=== PATIENT | female | born 1970 | race Two or more races ===

== ENCOUNTER 2016-12-06 22:16 | Emergency (ER) | payer SELFPAY ==
[~2016-12-06 22:16] MED LIST: AMOX1TAB61 PO
[2016-12-06 23:21] LABS: BILIRUBIN,URINE NEGATIVE (NEG); GLUCOSE,URINE NEGATIVE (NEG); NITRITE,URINE NEGATIVE (NEG); PROTEIN,URINE NEGATIVE (NEG-TRACE)
[2016-12-06 23:28] LABS: BACTERIA,URINE FEW /HPF (0-FEW); RBC,URINE OCC /HPF (0-2); SQUAMOUS EPITHELIAL CELL,UR FEW /LPF
[2016-12-06] MEDS ORDERED: IV NORMAL SALINE 1000ML BAG 1,000 ML IV SCH (23:30)
[2016-12-06] MEDS ORDERED: fentaNYL PF VIAL 100 MCG/2 ML VIAL IV PRN (23:30)
[2016-12-06] MEDS ORDERED: ONDANSETRON PF 4 MG/2 ML VIAL. IV ONE (23:45)
[2016-12-06] MEDS ORDERED: CONTRAST GIVEN MC PRN (23:45)
[2016-12-06 23:58] LABS: BASO # 0.1 x10^3/uL (0.0-0.2); BASO % 1 % (0-3); EOS % 3 % (0-3); HEMATOCRIT 38.7 % (36.0-47.0); HEMOGLOBIN 13.2 g/dL (12.0-15.5); LYMPH # 3.5 x10^3/uL (1.0-4.8); LYMPH % 32 % (24-48); MEAN CORPUSCULAR HEMOGLOBIN 33 pg (25-35); MEAN CORPUSCULAR HGB CONC 34 g/dL (31-37); MEAN CORPUSCULAR VOLUME 96 fL (79-100); MONO % 8 % (0-9); NEUT % 57 % (31-73); PLATELET COUNT 145 x10^3/uL (140-400); RED BLOOD COUNT 4.04 x10^6/uL (3.50-5.40); RED CELL DISTRIBUTION WIDTH 13.5 % (11.5-14.5)
[2016-12-07 00:06] LABS: CALCIUM 8.4 mg/dL (8.5-10.1); CREATININE 0.7 mg/dL (0.6-1.0); GFR 89.7; POTASSIUM 3.8 mmol/L (3.5-5.1)
[2016-12-07 00:12] LABS: ALBUMIN/GLOBULIN RATIO 0.7 (1.0-1.7); TOTAL BILIRUBIN 0.2 mg/dL (0.2-1.0); TOTAL PROTEIN 7.6 g/dL (6.4-8.2)
[2016-12-07] MEDS ORDERED: IOHEXOL 300 MG/ML 75 ML VIAL IV ONE (00:30)
--- NOTE | 2016-12-07 01:12 | RAD ---
INDICATION: abdomen pain x 4 days COMPARISON: February 07, 2016 TECHNIQUE: Axial CT images were obtained through the abdomen and pelvis with intravenous contrast. One or more of the following individualized dose reduction techniques were utilized for this examination: 1. Automated exposure control; 2. Adjustment of the mA and/or kV according to patient size; 3. Use of iterative reconstruction technique. FINDINGS: Linear nodular density right lung base again seen. Given location could be from atelectasis or scarring. Abdominal aorta is not aneurysmal. Liver low attenuation. No peripancreatic edema. Spleen unremarkable. No hydronephrosis. High density material within the renal pelvis. Could all be from excreted contrast but could obscure tiny stones. Some lobulations of right kidney. Bladder is partially distended. No dilated loops of bowel to suggest obstruction. Appendix does not appear grossly inflamed. Small fat-containing umbilical hernia. Degenerative changes of the spine. There is some probable old right rib fractures. Grade 1 anterolisthesis of L4 on 5. Suspect multilevel central canal and neural foraminal stenosis. IMPRESSION: 1. No evidence of bowel obstruction, hydronephrosis or appendicitis. 2. Low attenuation of the liver. Nonspecific but frequently secondary to fatty infiltration. 3. Fat-containing umbilical hernia. 4. Degenerative changes spine Electronically signed by: Estiven Claros MD (12/07/2016 1:09 AM) [facility]
--- NOTE | 2016-12-07 01:15 | ED.ADGEN ---
Past Medical History Past Medical History: Other Additional Past Medical Histor: UNKNOWN HEART CONDITION Past Surgical History: Other Additional Past Surgical Histo: UNKNOWN HEART SURGERY Alcohol Use: None Drug Use: None Adult General Chief Complaint Chief Complaint: FLANK PAIN HPI HPI Patient is a 46 year old woman, with a history of what is believed to be a heart catheterization, but no medical problems or stents, who presents to the emergency department with a complaint of generalized abdominal pain over the past several days. Patient is also complaining of pain with urination. Some nausea, no vomiting, no diarrhea. Denies any sick contacts, history of obtained with assistance of the language line physician scientist. Denies any injuries, recent travel or surgery. Review of Systems Review of Systems Constitutional: Denies fever or chills. [] Eyes: Denies change in visual acuity. [] HENT: Denies nasal congestion or sore throat. [] Respiratory: Denies cough or shortness of breath. [] Cardiovascular: Denies chest pain or edema. [] GI: Cramping diffuse abdominal pain associated with nausea, no vomiting, no diarrhea. : Dysuria. Musculoskeletal: Denies back pain or joint pain. [] Integument: Denies rash. [] Neurologic: Denies headache, focal weakness or sensory changes. [] Endocrine: Denies polyuria or polydipsia. [] Lymphatic: Denies swollen glands. [] Psychiatric: Denies depression or anxiety. [] Current Medications Current Medications Current Medications Medications (Trade) Dose Ordered Sig/Graciela Start Time Stop Time Status Last Admin Dose Admin Dicyclomine HCl (Bentyl) 10 mg 1X ONCE 12/07/16 02:00 12/07/16 02:01 DC 12/07/16 02:00 10 MG Fentanyl Citrate (Fentanyl 2ml Vial) 25 mcg PRN Q15MIN PRN 12/06/16 23:30 12/07/16 02:17 DC 12/06/16 23:49 25 MCG Info (Do NOT chart on this entry -- for MONITORING) 1 each PRN DAILY PRN 12/06/16 23:45 12/07/16 02:17 DC Iohexol (Omnipaque 300 Mg/ml) 75 ml 1X ONCE 12/07/16 00:30 12/07/16 00:31 DC 12/07/16 00:21 75 ML Ondansetron HCl (Zofran) 4 mg 1X ONCE 12/06/16 23:45 12/06/16 23:46 DC 12/06/16 23:47 4 MG Sodium Chloride 1,000 ml @ 1,000 mls/hr Q1H 12/06/16 23:30 12/07/16 00:29 DC 12/06/16 23:47 1,000 MLS/HR Allergies Allergies Allergies Coded Allergies Type Severity Reaction Last Updated Verified No Known Drug Allergies 12/22/13 No Physical Exam Physical Exam Constitutional: Well developed, well nourished, no acute distress, non-toxic appearance. [] HENT: Normocephalic, atraumatic, bilateral external ears normal, oropharynx moist, no oral exudates, nose normal. [] Eyes: PERRLA, EOMI, conjunctiva normal, no discharge. [] Neck: Normal range of motion, no tenderness, supple, no stridor. [] Cardiovascular:Heart rate regular rhythm, no murmur, S1, S2, rubs or gallops. [] Lungs & Thorax: Bilateral breath sounds clear to auscultation, no wheezing, rhonchi, rales. No chest or crepitus or tenderness. [] Abdomen: Bowel sounds normal, soft, tenderness to palpation in the lower abdomen and periumbilical region, no rebound, rigidity or guarding, no masses, no pulsatile masses. [] Skin: Warm, dry, no erythema, no rash. [] Back: No tenderness, no CVA tenderness. [] Extremities: No tenderness, no cyanosis, no clubbing, ROM intact, no edema. [] Neurologic: Alert and oriented X 3, normal motor function, normal sensory function, no focal deficits noted. [] Psychologic: Affect normal, judgement normal, mood normal. [] Current Patient Data Vital Signs Vital Signs Date Time Temp Pulse Resp B/P (MAP) Pulse Ox O2 Delivery O2 Flow Rate FiO2 12/07/16 02:00 67 14 108/59 (75) 99 12/07/16 01:00 Room Air 12/06/16 23:04 98.3 98.3 Lab Values Laboratory Tests Test 12/06/16 22:10 12/06/16 23:04 12/06/16 23:50 POC Urine HCG, Qualitative Hcg negative (Negative) Urine Collection Type Unknown Urine Color Yellow Urine Clarity Clear Urine pH 7.0 Urine Specific [place] 1.015 Urine Protein Negative mg/dL (NEG-TRACE) Urine Glucose (UA) Negative mg/dL (NEG) Urine Ketones (Stick) Negative mg/dL (NEG) Urine Blood Trace (NEG) Urine Nitrite Negative (NEG) Urine Bilirubin Negative (NEG) Urine Urobilinogen Dipstick 1.0 mg/dL (0.2 mg/dL) Urine Leukocyte Esterase Trace (NEG) Urine RBC Occ /HPF (0-2) Urine WBC 1-4 /HPF (0-4) Urine Squamous Epithelial Cells Few /LPF Urine Bacteria Few /HPF (0-FEW) Urine Mucus Slight /LPF White Blood Count 11.0 x10^3/uL (4.0-11.0) Red Blood Count 4.04 x10^6/uL (3.50-5.40) Hemoglobin 13.2 g/dL (12.0-15.5) Hematocrit 38.7 % (36.0-47.0) Mean Corpuscular Volume 96 fL (79-100) Mean Corpuscular Hemoglobin 33 pg (25-35) Mean Corpuscular Hemoglobin Concent 34 g/dL (31-37) Red Cell Distribution Width 13.5 % (11.5-14.5) Platelet Count 145 x10^3/uL (140-400) Neutrophils (%) (Auto) 57 % (31-73) Lymphocytes (%) (Auto) 32 % (24-48) Monocytes (%) (Auto) 8 % (0-9) Eosinophils (%) (Auto) 3 % (0-3) Basophils (%) (Auto) 1 % (0-3) Neutrophils # (Auto) 6.3 x10^3uL (1.8-7.7) Lymphocytes # (Auto) 3.5 x10^3/uL (1.0-4.8) Monocytes # (Auto) 0.8 x10^3/uL (0.0-1.1) Eosinophils # (Auto) 0.3 x10^3/uL (0.0-0.7) Basophils # (Auto) 0.1 x10^3/uL (0.0-0.2) Sodium Level 136 mmol/L (136-145) Potassium Level 3.8 mmol/L (3.5-5.1) Chloride Level 101 mmol/L (98-107) Carbon Dioxide Level 31 mmol/L (21-32) Anion Gap 4 (6-14) L Blood Urea Nitrogen 11 mg/dL (7-20) Creatinine 0.7 mg/dL (0.6-1.0) Estimated GFR (Cockcroft-Gault) 89.7 BUN/Creatinine Ratio 16 (6-20) Glucose Level 171 mg/dL (70-99) H Calcium Level 8.4 mg/dL (8.5-10.1) L Total Bilirubin 0.2 mg/dL (0.2-1.0) Aspartate Amino Transferase (AST) 23 U/L (15-37) Alanine Aminotransferase (ALT) 25 U/L (14-59) Alkaline Phosphatase 88 U/L (46-116) Total Protein 7.6 g/dL (6.4-8.2) Albumin 3.0 g/dL (3.4-5.0) L Albumin/Globulin Ratio 0.7 (1.0-1.7) L Lipase 87 U/L (73-393) Laboratory Tests 12/06/16 23:50 Laboratory Tests 12/06/16 23:50 EKG EKG Not indicated. [] Radiology/Procedures Radiology/Procedures [][facility] [address] [place], [place] [id number] IMAGING REPORT Signed PATIENT: THOMAS BROOKE ACCOUNT: [id number] : 1970 LOCATION: ER AGE: 46 SEX: F EXAM STATUS: REG ER ORD. PHYSICIAN: MADAI BALLESTEROS DO REASON: abd pain x 4 PROCEDURE: CT ABD PELV W/ IV CONTRST ONLY INDICATION: abdomen pain x 4 days COMPARISON: February 07, 2016 TECHNIQUE: Axial CT images were obtained through the abdomen and pelvis with intravenous contrast. One or more of the following individualized dose reduction techniques were utilized for this examination: 1. Automated exposure control; 2. Adjustment of the mA and/or kV according to patient size; 3. Use of iterative reconstruction technique. FINDINGS: Linear nodular density right lung base again seen. Given location could be from atelectasis or scarring. Abdominal aorta is not aneurysmal. Liver low attenuation. No peripancreatic edema. Spleen unremarkable. No hydronephrosis. High density material within the renal pelvis. Could all be from excreted contrast but could obscure tiny stones. Some lobulations of right kidney. Bladder is partially distended. No dilated loops of bowel to suggest obstruction. Appendix does not appear grossly inflamed. Small fat-containing umbilical hernia. Degenerative changes of the spine. There is some probable old right rib fractures. Grade 1 anterolisthesis of L4 on 5. Suspect multilevel central canal and neural foraminal stenosis. IMPRESSION: 1. No evidence of bowel obstruction, hydronephrosis or appendicitis. 2. Low attenuation of the liver. Nonspecific but frequently secondary to fatty infiltration. 3. Fat-containing umbilical hernia. 4. Degenerative changes spine Electronically signed by: Bandar Stokes MD (12/07/2016 1:09 AM) [facility] DICTATED and SIGNED BY: BANDAR STOKES MD DATE: 12/07/16 0058 CC: MADAI BALLESTEROS DO; NO PCP ~ Course & Med Decision Making Course & Med Decision Making Pertinent Labs and Imaging studies reviewed. (See chart for details) Patient patient's complaints and examination, laboratory studies and imaging obtained. No acute concerning findings identified, no evidence of infection or other findings. On reevaluation patient is feeling better, discussed the patient may be experiencing a viral illness. Patient with no further nausea or vomiting the ED. Given prescription for Bentyl, Zofran, discharged home with list of available providers in the region, along with medication instructions and precautions. Discharge instructions additional information relayed via the language line by nurse Desai, patient's questions answered her satisfaction this time. Patient and family discharged home in stable condition with plan to precautions as stated. Dragon Disclaimer Dragon Disclaimer This electronic medical record was generated, in whole or in part, using a voice recognition dictation system. Departure Impression: Primary Impression: Abdominal pain Disposition: 01 HOME, SELF-CARE Condition: IMPROVED Scripts Ondansetron Hcl (ZOFRAN) 4 Mg Tablet 4 MG PO BID Y for NAUSEA/VOMITING, #12 TAB Prov: MADAI BALLESTEROS DO 12/07/16 Dicyclomine Hcl (BENTYL) 10 Mg Capsule 10 MG PO QID Y for abdominal pain, #12 TAB Prov: MADAI BALLESTEROS DO 12/07/16 MADAI BALLESTEROS DO Dec 07, 2016 01:14
[2016-12-07] MEDS ORDERED: ONDA4TAB7 PO (01:40)
[2016-12-07] MEDS ORDERED: DICY10CA53 PO (01:40)
[2016-12-07 02:00] VITALS: BP 108/59
[2016-12-07] MEDS ORDERED: DICYCLOMINE HCL 10 MG CAPSULE PO ONE (02:00)
== END 2016-12-07 02:16 | disposition home or self-care (01) ==
LOC: ER 22:16
DX: R10.33 Periumbilical pain (principal); R10.84 Generalized abdominal pain; R30.9 Painful micturition, unspecified; R11.0 Nausea
CPT/HCPCS: 36415; 74177; 80053; 81001; 81025; 83690; 85027; 96374; 96375; 99285; J2405; J3010; J7030; Q9967

== ENCOUNTER 2017-07-07 14:14 | Emergency (ER) | payer SELFPAY ==
[2017-07-07] MEDS: diazePAM 5 MG TABLET PO (14:43)
[2017-07-07] MEDS: HYDROcodone/APAP 5/325MG 1 TAB TABLET PO (14:44)
== END 2017-07-07 14:58 | disposition home or self-care (01) ==
LOC: ER 14:14
DX: M54.9 Dorsalgia, unspecified (principal)
CPT/HCPCS: 99283

== ENCOUNTER 2017-10-02 15:08 | Inpatient (IN) | payer SELFPAY ==
[2017-10-02 15:58] LABS: BILIRUBIN,URINE NEGATIVE (NEG); CLARITY,URINE CLEAR; COLOR,URINE YELLOW; GLUCOSE,URINE >=1000 mg/dL (NEG); NITRITE,URINE NEGATIVE (NEG); PROTEIN,URINE NEGATIVE (NEG-TRACE)
[2017-10-02] MEDS: methylPREDNISolone SOD SUCC PF 125 MG/2 ML VIAL. IV (16:01)
[2017-10-02] MEDS: IPRATRPIUM/ALBUTEROL 0.5/2.5MG 3 ML NEBU. NEB (16:05)
[2017-10-02 16:06] LABS: ADD MAN DIFF? NO
[2017-10-02 16:11] LABS: BASO # 0.1 x10^3/uL (0.0-0.2); BASO % 1 % (0-3); EOS # 0.6 x10^3/uL (0.0-0.7); EOS % 7 % (0-3); HEMATOCRIT 41.7 % (36.0-47.0); HEMOGLOBIN 14.4 g/dL (12.0-15.5); LYMPH # 3.1 x10^3/uL (1.0-4.8); LYMPH % 36 % (24-48); MEAN CORPUSCULAR HEMOGLOBIN 33 pg (25-35); MEAN CORPUSCULAR HGB CONC 34 g/dL (31-37); MEAN CORPUSCULAR VOLUME 95 fL (79-100); MONO # 0.8 x10^3/uL (0.0-1.1); MONO % 9 % (0-9); NEUT % 46 % (31-73); PLATELET COUNT 142 x10^3/uL (140-400); RED BLOOD COUNT 4.39 x10^6/uL (3.50-5.40); RED CELL DISTRIBUTION WIDTH 13.2 % (11.5-14.5); WHITE BLOOD COUNT 8.6 x10^3/uL (4.0-11.0)
[2017-10-02 16:17] LABS: BACTERIA,URINE MANY /HPF (0-FEW); RBC,URINE OCC /HPF (0-2); SQUAMOUS EPITHELIAL CELL,UR MANY /LPF; WBC,URINE RARE /HPF (0-4)
[2017-10-02 16:19] LABS: ANION GAP 5 (6-14); BLOOD UREA NITROGEN 11 mg/dL (7-20); BUN/CREATININE RATIO 22 (6-20); CALCIUM 9.1 mg/dL (8.5-10.1); CARBON DIOXIDE 28 mmol/L (21-32); CHLORIDE 99 mmol/L (98-107); CREATININE 0.5 mg/dL (0.6-1.0); GFR 131.7; GLUCOSE 260 mg/dL (70-99); POTASSIUM 4.3 mmol/L (3.5-5.1); SODIUM 132 mmol/L (136-145)
[2017-10-02 16:24] LABS: ALBUMIN 3.2 g/dL (3.4-5.0); ALBUMIN/GLOBULIN RATIO 0.7 (1.0-1.7); ALK PHOS 108 U/L (46-116); ALT (SGPT) 31 U/L (14-59); AST (SGOT) 26 U/L (15-37); TOTAL BILIRUBIN 0.4 mg/dL (0.2-1.0); TOTAL PROTEIN 7.9 g/dL (6.4-8.2)
[2017-10-02 16:33] LABS: TROPONINI < 0.017 ng/mL (0.000-0.055)
[2017-10-02] MEDS ORDERED: ONDANSETRON PF 4 MG/2 ML VIAL. IV (17:00)
[2017-10-02] MEDS ORDERED: ACETAMINOPHEN 325 MG TABLET. PO (17:00)
[2017-10-02] MEDS: ONDANSETRON PF 4 MG/2 ML VIAL. IV (17:02)
[2017-10-02] MEDS: IV NORMAL SALINE 1000ML BAG 1,000 ML IV (17:02)
[2017-10-02 20:44] LABS: POC GLUCOSE 319 mg/dL (70-99)
[2017-10-02] MEDS: DOXYCYCLINE HYCLATE 100 MG TABLET PO (20:51)
[2017-10-02] MEDS: fentaNYL PF VIAL 100 MCG/2 ML VIAL IV (20:51)
[2017-10-02 23:27] LABS: TROPONINI < 0.017 ng/mL (0.000-0.055)
[2017-10-03] MEDS ORDERED: DEXTROSE 50% 25 GM / 50ML DISP.SYRIN. IV ×2 (01:00→10:00)
[2017-10-03 05:27] LABS: BASO % 0 % (0-3); EOS % 0 % (0-3); HEMATOCRIT 41.2 % (36.0-47.0); HEMOGLOBIN 14.2 g/dL (12.0-15.5); LYMPH # 1.8 x10^3/uL (1.0-4.8); LYMPH % 12 % (24-48); MEAN CORPUSCULAR HEMOGLOBIN 33 pg (25-35); MEAN CORPUSCULAR HGB CONC 34 g/dL (31-37); MEAN CORPUSCULAR VOLUME 96 fL (79-100); MONO # 0.2 x10^3/uL (0.0-1.1); MONO % 1 % (0-9); NEUT # 13.3 x10^3uL (1.8-7.7); NEUT % 87 % (31-73); PLATELET COUNT 143 x10^3/uL (140-400); RED CELL DISTRIBUTION WIDTH 13.3 % (11.5-14.5); WHITE BLOOD COUNT 15.3 x10^3/uL (4.0-11.0)
[2017-10-03 05:28] LABS: ADD MAN DIFF? YES
[2017-10-03 05:52] LABS: ALBUMIN 2.8 g/dL (3.4-5.0); ALBUMIN/GLOBULIN RATIO 0.5 (1.0-1.7); ALK PHOS 106 U/L (46-116); ALT (SGPT) 32 U/L (14-59); ANION GAP 9 (6-14); AST (SGOT) 26 U/L (15-37); BLOOD UREA NITROGEN 11 mg/dL (7-20); BUN/CREATININE RATIO 16 (6-20); CALCIUM 9.1 mg/dL (8.5-10.1); CARBON DIOXIDE 26 mmol/L (21-32); CHLORIDE 99 mmol/L (98-107); CREATININE 0.7 mg/dL (0.6-1.0); GFR 89.3; GLUCOSE 237 mg/dL (70-99); POTASSIUM 4.3 mmol/L (3.5-5.1); SODIUM 134 mmol/L (136-145); TOTAL BILIRUBIN 0.5 mg/dL (0.2-1.0); TOTAL PROTEIN 7.9 g/dL (6.4-8.2)
[2017-10-03 06:02] LABS: TROPONINI < 0.017 ng/mL (0.000-0.055)
[2017-10-03 06:11] LABS: LACTIC ACID 2.9 mmol/L (0.4-2.0)
[2017-10-03 06:37] LABS: % BANDS 7 % (0-9); % LYMPHS 9 % (24-48); % SEGS 84 % (35-66); PLT ESTIMATE ADEQUATE (ADEQUATE)
[2017-10-03 06:38] LABS: ANISOCYTOSIS SLIGHT
[2017-10-03 07:31] LABS: POC GLUCOSE 252 mg/dL (70-99)
[2017-10-03] MEDS: DOXYCYCLINE HYCLATE 100 MG TABLET PO ×2 (08:17→21:01)
[2017-10-03] MEDS: fentaNYL PF VIAL 100 MCG/2 ML VIAL IV (08:18)
[2017-10-03] MEDS: INSULIN LISPRO 300 UNITS/3 ML INSULN.PEN. SQ ×3 (08:25→17:00)
[2017-10-03] MEDS ORDERED: DOCUSATE SODIUM 100 MG CAPSULE. PO (10:00)
[2017-10-03] MEDS ORDERED: ALBUTEROL SULFATE 2.5 MG/3 ML NEBU. NEB (10:00)
[2017-10-03] MEDS ORDERED: traMADol 50 MG TABLET PO (10:00)
[2017-10-03] MEDS ORDERED: hydrALAZINE 20 MG/ML VIAL. IVP (10:00)
[2017-10-03] MEDS ORDERED: ACETAMINOPHEN 325 MG TABLET. PO (10:00)
[2017-10-03] MEDS ORDERED: ONDANSETRON PF 4 MG/2 ML VIAL. IV (10:00)
[2017-10-03 11:20] LABS: TROPONINI < 0.017 ng/mL (0.000-0.055)
[2017-10-03] MEDS: IPRATRPIUM/ALBUTEROL 0.5/2.5MG 3 ML NEBU. NEB ×3 (11:20→20:27)
[2017-10-03 12:14] LABS: HEMOGLOBIN A1C 8.2 % (4.8-5.6)
[2017-10-03] MEDS: PANTOPRAZOLE 40 MG TABLET.DR. PO (14:58)
[2017-10-03] MEDS: ENOXAPARIN 40 MG/0.4 ML SYRINGE. SQ (14:58)
[2017-10-03] MEDS: GLIMEPIRIDE 2 MG TABLET. PO (14:58)
[2017-10-03 16:27] LABS: POC GLUCOSE 183 mg/dL (70-99)
[2017-10-03 16:27] LABS: POC GLUCOSE 278 mg/dL (70-99)
[2017-10-03 20:54] LABS: POC GLUCOSE 264 mg/dL (70-99)
[2017-10-03] MEDS: LACTOBACILLUS RHAMNOSUS GG 1 CAPSULE. PO (21:02)
[2017-10-04] MEDS: MORPHINE SULFATE 4 MG/ML DISP.SYRIN. IV (04:39)
[2017-10-04 05:04] LABS: ADD MAN DIFF? NO
[2017-10-04 05:19] LABS: BASO % 0 % (0-3); EOS # 0.1 x10^3/uL (0.0-0.7); EOS % 0 % (0-3); HEMATOCRIT 38.9 % (36.0-47.0); HEMOGLOBIN 13.3 g/dL (12.0-15.5); LYMPH # 3.8 x10^3/uL (1.0-4.8); LYMPH % 30 % (24-48); MEAN CORPUSCULAR HEMOGLOBIN 33 pg (25-35); MEAN CORPUSCULAR HGB CONC 34 g/dL (31-37); MEAN CORPUSCULAR VOLUME 95 fL (79-100); MONO # 0.8 x10^3/uL (0.0-1.1); MONO % 6 % (0-9); NEUT # 8.2 x10^3uL (1.8-7.7); NEUT % 64 % (31-73); PLATELET COUNT 130 x10^3/uL (140-400); RED BLOOD COUNT 4.07 x10^6/uL (3.50-5.40); RED CELL DISTRIBUTION WIDTH 13.5 % (11.5-14.5); WHITE BLOOD COUNT 12.9 x10^3/uL (4.0-11.0)
[2017-10-04 05:24] LABS: ANION GAP 5 (6-14); BLOOD UREA NITROGEN 19 mg/dL (7-20); CALCIUM 8.6 mg/dL (8.5-10.1); CARBON DIOXIDE 30 mmol/L (21-32); CHLORIDE 102 mmol/L (98-107); CREATININE 0.8 mg/dL (0.6-1.0); GFR 76.6; GLUCOSE 175 mg/dL (70-99); POTASSIUM 3.7 mmol/L (3.5-5.1); SODIUM 137 mmol/L (136-145)
[2017-10-04 05:34] LABS: LACTIC ACID 1.4 mmol/L (0.4-2.0)
[2017-10-04] MEDS: IPRATRPIUM/ALBUTEROL 0.5/2.5MG 3 ML NEBU. NEB ×2 (07:37→11:47)
[2017-10-04 07:56] LABS: POC GLUCOSE 171 mg/dL (70-99)
[2017-10-04] MEDS: GLIMEPIRIDE 2 MG TABLET. PO (08:10)
[2017-10-04] MEDS: PANTOPRAZOLE 40 MG TABLET.DR. PO (08:10)
[2017-10-04] MEDS: LACTOBACILLUS RHAMNOSUS GG 1 CAPSULE. PO (08:10)
[2017-10-04] MEDS: DOXYCYCLINE HYCLATE 100 MG TABLET PO (08:10)
[2017-10-04] MEDS: INSULIN LISPRO 300 UNITS/3 ML INSULN.PEN. SQ ×2 (08:16→12:04)
[2017-10-04 11:14] LABS: POC GLUCOSE 183 mg/dL (70-99)
== END 2017-10-04 13:55 | disposition home or self-care (01) | DRG 189 ==
LOC: ER 15:08 → 5 SOUTH 16:46
DX: J96.00 Acute respiratory failure, unspecified whether with hypoxia or hypercapnia (principal); E87.2 Acidosis; E11.65 Type 2 diabetes mellitus with hyperglycemia; K76.0 Fatty (change of) liver, not elsewhere classified; J40 Bronchitis, not specified as acute or chronic; E66.01 Morbid (severe) obesity due to excess calories; Z68.31 Body mass index [BMI] 31.0-31.9, adult
CPT/HCPCS: 36415; 71046; 76700; 80048; 80053; 81001; 82962; 83036; 83605; 84484; 85007; 85025; 93005; 94640; 94760; 96361; 96374; 96375; 99285; 99285-25; J1815; J2270; J2405; J2930; J3010; J7030; J7620

== ENCOUNTER 2018-03-08 10:02 | Emergency (ER) | payer SELFPAY ==
[~2018-03-08] VITALS: Ht 147.3 cm; Wt 71.2 kg
[~2018-03-08 10:02] MED LIST changes: +DICY10CA53 PO; +DOXY100T PO; +GLIM2TAB PO; +GUAI600T47 PO; +HYDR-971 PO; +IBUP-1060 PO; +METF1000 PO; +ONDA4TAB7 PO
[2018-03-08 10:25] VITALS: BP 150/72
--- NOTE | 2018-03-08 11:09 | PHYS DOC ---
Past Medical History Past Medical History: Other Additional Past Medical Histor: UNKNOWN HEART CONDITION Past Surgical History: Other Additional Past Surgical Histo: UNKNOWN HEART SURGERY Alcohol Use: None Drug Use: None Adult General Chief Complaint Chief Complaint: MULTIPLE COMPLAINTS HPI HPI Patient is a 48 year old female who presents with a sore throat and cough 3 days. The patient also has had some mild body aches. She mainly states that her throat is sore when she tries to swallow. She denies fever, congestion or ear pain. Review of Systems Review of Systems Constitutional: Denies fever or chills [] Eyes: Denies change in visual acuity, redness, or eye pain [] HENT: See history of present illness Respiratory: See history of present illness Cardiovascular: No additional information not addressed in HPI [] GI: Denies abdominal pain, nausea, vomiting, bloody stools or diarrhea [] : Denies dysuria or hematuria [] Musculoskeletal: Denies back pain or joint pain [] Integument: Denies rash or skin lesions [] Neurologic: Denies headache, focal weakness or sensory changes [] Endocrine: Denies polyuria or polydipsia [] All other systems were reviewed and found to be within normal limits, except as documented in this note. Allergies Allergies Allergies Coded Allergies Type Severity Reaction Last Updated Verified No Known Drug Allergies 12/22/13 No Physical Exam Physical Exam Constitutional: Well developed, well nourished, no acute distress, non-toxic appearance. [] HENT: Normocephalic, atraumatic, bilateral tympanic membranes normal, mild pharyngeal erythema with no oral exudates, nose normal. [] Eyes: PERRLA, EOMI, conjunctiva normal, no discharge. [] Neck: Normal range of motion, no tenderness, supple, no stridor. [] Cardiovascular:Heart rate regular rhythm, no murmur [] Lungs & Thorax: Bilateral breath sounds clear to auscultation [] Abdomen: Bowel sounds normal, soft, no tenderness, no masses, no pulsatile masses. [] Skin: Warm, dry, no erythema, no rash. [] Neurologic: Alert and oriented X 3, normal motor function, normal sensory function, no focal deficits noted. [] Psychologic: Affect normal, judgement normal, mood normal. [] Current Patient Data Vital Signs Vital Signs Date Time Temp Pulse Resp B/P (MAP) Pulse Ox O2 Delivery O2 Flow Rate FiO2 11/7/18 10:25 98.0 73 18 150/72 (98) 97 Room Air 98.0 Lab Values Laboratory Tests Test 03/08/18 11:05 Group A Streptococcus Rapid Negative (NEGATIVE) EKG EKG [] Radiology/Procedures Radiology/Procedures [] Course & Med Decision Making Course & Med Decision Making Pertinent Labs and Imaging studies reviewed. (See chart for details) []The patient's rapid strep was negative. Dragon Disclaimer Dragon Disclaimer This electronic medical record was generated, in whole or in part, using a voice recognition dictation system. Departure Departure Impression: Primary Impression: Upper respiratory infection Disposition: HOME, SELF-CARE Condition: STABLE Referrals: NO PCP (PCP) Patient Instructions: Upper Respiratory Infection, Adult Additional Instructions: You may use [id number] cough and cold medication. Use ibuprofen or Tylenol for pain or fever. Follow-up with your primary care provider in 4 days if not improving or return to the emergency department if worsening. REGINALDO OSWALD APRN Mar 08, 2018 11:09
== END 2018-03-08 11:20 | disposition home or self-care (01) ==
LOC: ER 10:02
DX: J06.9 Acute upper respiratory infection, unspecified (principal); M79.10 Myalgia, unspecified site
CPT/HCPCS: 87070; 87880; 99283

== ENCOUNTER 2018-06-13 10:49 | Emergency (ER) | payer SELFPAY ==
[~2018-06-13] VITALS: Ht 162.6 cm; Wt 95.3 kg
[~2018-06-13 10:49] MED LIST changes: +HYDR-3164 PO; -HYDR-971 PO
[2018-06-13 11:22] VITALS: BP 143/85
[2018-06-13] MEDS ORDERED: predniSONE 10 MG TABLET PO ONE (12:00)
[2018-06-13] MEDS ORDERED: ACETAMINOPHEN 650 MG/20.3 ML SOLUTION. PO ONE (12:00)
[2018-06-13] MEDS ORDERED: LIDOCAINE 2% VISCOUS 15 ML SOLUTION. SWSW ONE (12:00)
--- NOTE | 2018-06-13 12:13 | PHYS DOC ---
Past Medical History Past Medical History: No Pertinent History, Other Additional Past Medical Histor: UNKNOWN HEART CONDITION Past Surgical History: Other Additional Past Surgical Histo: UNKNOWN HEART SURGERY Alcohol Use: None Drug Use: None Adult General Chief Complaint Chief Complaint: SORE THROAT HPI HPI Patient is a 48 year old female who presents to the ED today complaining of a sore throat and a cough that began yesterday. Patient is also complaining of subjective fevers. Review of Systems Review of Systems Constitutional: Reports fevers Eyes: Denies change in visual acuity, redness, or eye pain [] HENT: Reports sore throat. Denies nasal congestion Respiratory: Reports cough, denies shortness of breath [] Cardiovascular: No additional information not addressed in HPI [] GI: Denies abdominal pain, nausea, vomiting, bloody stools or diarrhea [] : Denies dysuria or hematuria [] Musculoskeletal: Denies back pain or joint pain [] Integument: Denies rash or skin lesions [] Neurologic: Denies headache, focal weakness or sensory changes [] All other systems were reviewed and found to be within normal limits, except as documented in this note. Current Medications Current Medications Current Medications Medications (Trade) Dose Ordered Sig/Graciela Start Time Stop Time Status Last Admin Dose Admin Acetaminophen (Tylenol) 650 mg 1X ONCE 06/13/18 12:00 06/13/18 12:01 DC Lidocaine HCl (Viscous Lidocaine) 15 ml 1X ONCE 06/13/18 12:00 06/13/18 12:01 DC Prednisone (Prednisone) 50 mg 1X ONCE 06/13/18 12:00 06/13/18 12:01 DC Allergies Allergies Allergies Coded Allergies Type Severity Reaction Last Updated Verified No Known Drug Allergies 12/22/13 No Physical Exam Physical Exam Constitutional: Well developed, well nourished, no acute distress, non-toxic appearance. [] HENT: Normocephalic, atraumatic, bilateral external ears normal, oropharynx moist, no oral exudates, nose normal. [] Posterior pharynx with mild erythema and exudate bilaterally an posteriorly Eyes: PERRLA, EOMI, conjunctiva normal, no discharge. [] Neck: Normal range of motion, no tenderness, supple, no stridor. [] Cardiovascular:Heart rate regular rhythm, no murmur [] Lungs & Thorax: Bilateral breath sounds clear to auscultation [] Abdomen: Bowel sounds normal, soft, no tenderness, no masses, no pulsatile masses. [] Skin: Warm, dry, no erythema, no rash. [] Back: No tenderness, no CVA tenderness. [] Extremities: No tenderness, no cyanosis, no clubbing, ROM intact, no edema. [] Neurologic: Alert and oriented X 3, normal motor function, normal sensory function, no focal deficits noted. [] Psychologic: Affect normal, judgement normal, mood normal. [] Current Patient Data Vital Signs Vital Signs Date Time Temp Pulse Resp B/P (MAP) Pulse Ox O2 Delivery O2 Flow Rate FiO2 06/13/18 11:22 99.8 114 20 143/85 (104) 94 Room Air 99.8 EKG EKG [] Radiology/Procedures Radiology/Procedures [] Course & Med Decision Making Course & Med Decision Making Pertinent Labs and Imaging studies reviewed. (See chart for details) This is a 48-year-old female patient presented to the ED today with sore throat and fever as well as a cough that began yesterday. Temperature 99.8 in the ED, physical exam consistent with tonsillitis. Patient was discharged with amoxicillin. Tylenol or Motrin for pain or fever. Saltwater gargles recommended. Follow-up with primary care doctor in one week. Dragon Disclaimer Dragon Disclaimer This electronic medical record was generated, in whole or in part, using a voice recognition dictation system. Departure Departure Impression: Primary Impression: Acute tonsillitis Additional Impressions: Fever Cough Disposition: 01 HOME, SELF-CARE Condition: STABLE Referrals: NO PCP (PCP) follow up with your doctor in 1 week Patient Instructions: Cough, Adult, Fever, Adult, [id number], Tonsillitis Additional Instructions: You have acute tonsillitis, we put you on antibiotics, ensure you complete them. Take Tylenol or Motrin for pain or fever. Use saltwater gargles. Follow- up with your doctor in 1-2 weeks. Scripts Prednisone (PREDNISONE) 50 Mg Tablet 1 TAB PO DAILY, #5 TAB Prov: MUTUNGACORINNE UNHAIRING INSPECTOR 06/13/18 Benzonatate (TESSALON PERLE) 100 Mg Capsule 1 CAP PO TID, #30 CAP Prov: MUTUNGA,CORINNE UNHAIRING INSPECTOR 06/13/18 Amoxicillin (AMOXICILLIN) 875 Mg Tablet 1 TAB PO BID, #20 TAB Prov: MUTUNGA,CORINNE UNHAIRING INSPECTOR 06/13/18 Problem Qualifiers Primary Impression: Acute tonsillitis Pharyngitis/tonsillitis etiology: unspecified etiology Qualified Codes: J03.90 - Acute tonsillitis, unspecified Additional Impressions: Fever Fever type: unspecified Qualified Codes: R50.9 - Fever, unspecified CORINNE SHARPE UNHAIRING INSPECTOR Jun 13, 2018 12:13
[2018-06-13] MEDS ORDERED: AMOX875T PO (12:19)
[2018-06-13] MEDS ORDERED: BENZ100C PO (12:19)
[2018-06-13] MEDS ORDERED: PRED50TA PO (12:19)
== END 2018-06-13 12:36 | disposition home or self-care (01) ==
LOC: ER 10:49
DX: J03.90 Acute tonsillitis, unspecified (principal); R50.9 Fever, unspecified
CPT/HCPCS: 87070; 87880; 99284; J7512

== ENCOUNTER 2018-07-15 09:57 | Emergency (ER) | payer SELFPAY ==
[~2018-07-15] VITALS: Ht 152.4 cm; Wt 95.3 kg
[~2018-07-15 09:57] MED LIST changes: +AMOX875T PO; +BENZ100C PO; +PRED50TA PO
[2018-07-15 10:44] VITALS: BP 143/85
[2018-07-15] MEDS ORDERED: ONDANSETRON PF 4 MG/2 ML VIAL. IV ONE (10:45)
[2018-07-15] MEDS ORDERED: IV NORMAL SALINE 1000ML BAG 1,000 ML IV ONE (10:45)
[2018-07-15] MEDS ORDERED: FAMOTIDINE 20 MG/2 ML VIAL IVP ONE (10:45)
[2018-07-15 10:53] LABS: BILIRUBIN,URINE NEGATIVE (NEG); CLARITY,URINE CLEAR; COLOR,URINE YELLOW; NITRITE,URINE NEGATIVE (NEG); PH,URINE 6.5; PROTEIN,URINE NEGATIVE (NEG-TRACE)
--- NOTE | 2018-07-15 10:54 | PHYS DOC ---
Past Medical History Past Medical History: No Pertinent History, Other Additional Past Medical Histor: UNKNOWN HEART CONDITION (CORINNE SHARPE APRN) Past Surgical History: Other Additional Past Surgical Histo: UNKNOWN HEART SURGERY (CORINNE SHARPE APRN) Alcohol Use: None Drug Use: None (CORINNE SHARPE APRN) Adult General Chief Complaint Chief Complaint: TEST [facility] HPI Patient is a 48 year old female with no significant medical history who presents to the ED today complaining she did not have a period in June and is concerned she could be . Patient states her last menstrual cycle was sometimes in May 2018. She states she's had a cycle every month unless she is . Patient denies any other complaints. Motorcycle Assembler not available Chukese they state this is a limited language (CORINNE SHARPE APRN) Review of Systems Review of Systems Constitutional: Denies fever or chills [] Eyes: Denies change in visual acuity, redness, or eye pain [] HENT: Denies nasal congestion or sore throat [] Respiratory: Denies cough or shortness of breath [] Cardiovascular: No additional information not addressed in HPI [] GI: Missed menstrual cycle. Denies abdominal pain, nausea, vomiting, bloody stools or diarrhea [] : Denies dysuria or hematuria [] Musculoskeletal: Denies back pain or joint pain [] Integument: Denies rash or skin lesions [] All other systems were reviewed and found to be within normal limits, except as documented in this note. (CORINNE SHARPE APRN) Current Medications Current Medications Current Medications Medications (Trade) Dose Ordered Sig/Graciela Start Time Stop Time Status Last Admin Dose Admin Famotidine (Pepcid Vial) 20 mg 1X ONCE 07/15/18 10:45 07/15/18 10:46 Cancel Ondansetron HCl (Zofran) 4 mg 1X ONCE 07/15/18 10:45 07/15/18 10:46 Cancel Sodium Chloride 1,000 ml @ 1,000 mls/hr 1X ONCE 07/15/18 10:45 07/15/18 11:44 Cancel (BRENDON BOSWELL MD) Allergies Allergies Allergies Coded Allergies Type Severity Reaction Last Updated Verified No Known Drug Allergies 12/22/13 No (BRENDON BOSWELL MD) Physical Exam Physical Exam Constitutional: Well developed, well nourished, no acute distress, non-toxic appearance. [] HENT: Normocephalic, atraumatic, bilateral external ears normal, oropharynx moist, no oral exudates, nose normal. [] Eyes: PERRLA, EOMI, conjunctiva normal, no discharge. [] Neck: Normal range of motion, no tenderness, supple, no stridor. [] Cardiovascular:Heart rate regular rhythm, no murmur [] Lungs & Thorax: Bilateral breath sounds clear to auscultation [] Abdomen: Bowel sounds normal, soft, no tenderness, no masses, no pulsatile masses. [] Skin: Warm, dry, no erythema, no rash. [] Back: No tenderness, no CVA tenderness. [] Extremities: No tenderness, no cyanosis, no clubbing, ROM intact, no edema. [] Neurologic: Alert and oriented X 3, normal motor function, normal sensory function, no focal deficits noted. [] Psychologic: Affect normal, judgement normal, mood normal. [] (CORINNE SHARPE APRN) Current Patient Data Vital Signs Vital Signs Date Time Temp Pulse Resp B/P (MAP) Pulse Ox O2 Delivery O2 Flow Rate FiO2 07/15/18 10:44 98.6 74 18 143/85 (104) 99 Room Air 98.6 (BRENDON BOSWELL MD) Lab Values Laboratory Tests Test 07/15/18 10:27 Urine Collection Type Unknown Urine Color Yellow Urine Clarity Clear Urine pH 6.5 Urine Specific [place] 1.015 Urine Protein Negative mg/dL (NEG-TRACE) Urine Glucose (UA) 500 mg/dL (NEG) Urine Ketones (Stick) Negative mg/dL (NEG) Urine Blood Trace (NEG) Urine Nitrite Negative (NEG) Urine Bilirubin Negative (NEG) Urine Urobilinogen Dipstick 1.0 mg/dL (0.2 mg/dL) Urine Leukocyte Esterase Negative (NEG) Urine RBC 1-2 /HPF (0-2) Urine WBC Occ /HPF (0-4) Urine Squamous Epithelial Cells Many /LPF Urine Bacteria Few /HPF (0-FEW) POC Urine HCG, Qualitative Hcg negative (Negative) (BRENDON BOSWELL MD) EKG EKG [] (CORINNE SHARPE APRN) Radiology/Procedures Radiology/Procedures [] (CORINNE SHARPE APRN) Course & Med Decision Making Course & Med Decision Making Pertinent Labs and Imaging studies reviewed. (See chart for details) This is a 48-year-old female patient presenting to the ED today requesting a test because she is concerned she could be , she states she missed her June and June cycles. Her last cycle was in May 2018. Patient is 48. test is negative. She is in perimenopausal phase. We talked about perimenopausal phase and eventually menopause. Informed her her cycles will be irregular with some of them missing and eventually she will not bleed. Informed her if she goes for 1 year without a cycle she has hit menopause and is not likely to cycle anymore. Informed her this is a normal process of aging for women. She was discharged to home. Provided DESIGN TRANSFERRER follow- up as an outpatient. Major language barrier and communication, unable to find an ic designer gate arrays for Zev (CORINNE SHARPE APRN) Course & Med Decision Making Staff Physician Addendum: I was working in the ER during the course of this patient's visit. I was available for consultation as needed, but I was not directly involved in the care of this patient. (BRENDON BOSWELL MD) Dragon Disclaimer Dragon Disclaimer This electronic medical record was generated, in whole or in part, using a voice recognition dictation system. (CORINNE SHARPE APRN) Departure Departure Impression: Primary Impression: Criss-menopausal Additional Impression: Language barrier affecting health care Disposition: 01 HOME, SELF-CARE Condition: STABLE Referrals: NO PCP (PCP) ROHIT CARMONA MD follow up in 1 week Additional Instructions: You were evaluated in the emergency room, your test is negative. Your going through perimenopausal phase where a woman is getting ready to be in menopause. In this phase your cycles will be irregular meaning some months you will not get a cycle, if you go for 1 year without a cycle you will be in menopause where you will not bleed anymore. This is a normal process of aging for women. Follow-up with your doctor or the provided OBGYN as needed Problem Qualifiers CORINNE SHARPE APRN Jul 15, 2018 10:54 BRENDON BOSWELL MD Jul 15, 2018 12:39
[2018-07-15 11:04] LABS: SQUAMOUS EPITHELIAL CELL,UR MANY /LPF
[2018-07-15 11:05] LABS: BACTERIA,URINE FEW /HPF (0-FEW); WBC,URINE OCC /HPF (0-4)
== END 2018-07-15 11:37 | disposition home or self-care (01) ==
LOC: ER 09:57
DX: N95.1 Menopausal and female climacteric states (principal)
CPT/HCPCS: 81001; 81025; 99283

== ENCOUNTER 2018-10-18 17:02 | Emergency (ER) | payer SELFPAY ==
[~2018-10-18] VITALS: Ht 160 cm; Wt 95.3 kg
[2018-10-18] MEDS ORDERED: ONDANSETRON PF 4 MG/2 ML VIAL. IV ONE (17:45)
[2018-10-18 17:46] LABS: BASO % 0 % (0-3); EOS # 0.2 x10^3/uL (0.0-0.7); EOS % 3 % (0-3); HEMATOCRIT 42.2 % (36.0-47.0); HEMOGLOBIN 14.5 g/dL (12.0-15.5); LYMPH # 3.6 x10^3/uL (1.0-4.8); LYMPH % 41 % (24-48); MEAN CORPUSCULAR HEMOGLOBIN 32 pg (25-35); MEAN CORPUSCULAR HGB CONC 34 g/dL (31-37); MEAN CORPUSCULAR VOLUME 93 fL (79-100); MONO # 0.6 x10^3/uL (0.0-1.1); MONO % 7 % (0-9); NEUT # 4.3 x10^3uL (1.8-7.7); NEUT % 50 % (31-73); PLATELET COUNT 149 x10^3/uL (140-400); RED BLOOD COUNT 4.51 x10^6/uL (3.50-5.40); RED CELL DISTRIBUTION WIDTH 13.1 % (11.5-14.5); WHITE BLOOD COUNT 8.8 x10^3/uL (4.0-11.0)
--- NOTE | 2018-10-18 17:58 | PHYS DOC ---
Past Medical History Past Medical History: No Pertinent History, Other Additional Past Medical Histor: UNKNOWN HEART CONDITION Past Surgical History: Other Additional Past Surgical Histo: UNKNOWN HEART SURGERY Alcohol Use: None Drug Use: None Adult General Chief Complaint Chief Complaint: ABDOMINAL PAIN [facility] HPI 48-year-old female presents to ER for complaints of diffuse abdominal pain with vomiting episodes. Review of Systems Review of Systems Constitutional: Denies fever or chills [] Eyes: Denies change in visual acuity, redness, or eye pain [] HENT: Denies nasal congestion or sore throat [] Respiratory: Denies cough or shortness of breath [] Cardiovascular: No additional information not addressed in HPI [] GI: Denies abdominal pain, nausea, vomiting, bloody stools or diarrhea [] : Denies dysuria or hematuria [] Musculoskeletal: Denies back pain or joint pain [] Integument: Denies rash or skin lesions [] Neurologic: Denies headache, focal weakness or sensory changes [] Endocrine: Denies polyuria or polydipsia [] All other systems were reviewed and found to be within normal limits, except as documented in this note. Current Medications Current Medications Current Medications Medications (Trade) Dose Ordered Sig/Graciela Start Time Stop Time Status Last Admin Dose Admin Iohexol (Omnipaque 300 Mg/ml) 75 ml 1X ONCE 10/18/18 18:15 10/18/18 18:16 DC 10/18/18 18:10 75 ML Ondansetron HCl (Zofran) 4 mg 1X ONCE 10/18/18 17:45 10/18/18 17:46 DC 10/18/18 17:46 4 MG Allergies Allergies Allergies Coded Allergies Type Severity Reaction Last Updated Verified No Known Drug Allergies 12/22/13 No Physical Exam Physical Exam Constitutional: Well developed, well nourished, no acute distress, non-toxic appearance. [] HENT: Normocephalic, atraumatic, oropharynx moist, nose normal. [] Eyes: Pupils equal, conjunctiva normal, no discharge. [] Neck: Normal range of motion, no tenderness, supple, no stridor. [] Cardiovascular: Heart rate regular rhythm, no murmur [] Lungs & Thorax: Bilateral breath sounds clear to auscultation- resp. equal/nonlabored Abdomen: Bowel sounds normal, soft/obese- no distention/rigidity, diffuse tenderness in all abd- no rebound, no masses, no pulsatile masses. [] Skin: Warm, dry, no erythema, no rash. [] Back: No tenderness, no CVA tenderness. [] Extremities: No tenderness, no cyanosis, no clubbing, ROM intact, no edema. [] Neurologic: Alert and oriented X 3, normal motor function, normal sensory function, no focal deficits noted. [] Psychologic: Affect normal, judgement normal, mood normal. [] Current Patient Data Vital Signs Vital Signs Date Time Temp Pulse Resp B/P (MAP) Pulse Ox O2 Delivery O2 Flow Rate FiO2 10/18/18 17:22 97.7 68 18 137/76 (96) 94 Room Air 97.7 Lab Values Laboratory Tests Test 10/18/18 17:07 10/18/18 17:11 White Blood Count 8.8 x10^3/uL (4.0-11.0) Red Blood Count 4.51 x10^6/uL (3.50-5.40) Hemoglobin 14.5 g/dL (12.0-15.5) Hematocrit 42.2 % (36.0-47.0) Mean Corpuscular Volume 93 fL (79-100) Mean Corpuscular Hemoglobin 32 pg (25-35) Mean Corpuscular Hemoglobin Concent 34 g/dL (31-37) Red Cell Distribution Width 13.1 % (11.5-14.5) Platelet Count 149 x10^3/uL (140-400) Neutrophils (%) (Auto) 50 % (31-73) Lymphocytes (%) (Auto) 41 % (24-48) Monocytes (%) (Auto) 7 % (0-9) Eosinophils (%) (Auto) 3 % (0-3) Basophils (%) (Auto) 0 % (0-3) Neutrophils # (Auto) 4.3 x10^3uL (1.8-7.7) Lymphocytes # (Auto) 3.6 x10^3/uL (1.0-4.8) Monocytes # (Auto) 0.6 x10^3/uL (0.0-1.1) Eosinophils # (Auto) 0.2 x10^3/uL (0.0-0.7) Basophils # (Auto) 0.0 x10^3/uL (0.0-0.2) Maternal Serum HCG Beta Subunit 1 mIU/mL (0-5) Sodium Level 136 mmol/L (136-145) Potassium Level 3.7 mmol/L (3.5-5.1) Chloride Level 99 mmol/L (98-107) Carbon Dioxide Level 31 mmol/L (21-32) Anion Gap 6 (6-14) Blood Urea Nitrogen 12 mg/dL (7-20) Creatinine 0.7 mg/dL (0.6-1.0) Estimated GFR (Cockcroft-Gault) 88.9 BUN/Creatinine Ratio 17 (6-20) Glucose Level 187 mg/dL (70-99) H Calcium Level 9.0 mg/dL (8.5-10.1) Magnesium Level 1.7 mg/dL (1.8-2.4) L Total Bilirubin 0.4 mg/dL (0.2-1.0) Aspartate Amino Transferase (AST) 19 U/L (15-37) Alanine Aminotransferase (ALT) 38 U/L (14-59) Alkaline Phosphatase 123 U/L (46-116) H Troponin I Quantitative < 0.017 ng/mL (0.000-0.055) Total Protein 8.4 g/dL (6.4-8.2) H Albumin 3.3 g/dL (3.4-5.0) L Albumin/Globulin Ratio 0.6 (1.0-1.7) L Lipase 62 U/L (73-393) L Urine Collection Type Unknown Urine Color Yellow Urine Clarity Clear Urine pH 5.5 Urine Specific [place] >=1.030 Urine Protein 30 mg/dL (NEG-TRACE) Urine Glucose (UA) >=1000 mg/dL (NEG) Urine Ketones (Stick) Negative mg/dL (NEG) Urine Blood Negative (NEG) Urine Nitrite Negative (NEG) Urine Bilirubin Negative (NEG) Urine Urobilinogen Dipstick 1.0 mg/dL (0.2 mg/dL) Urine Leukocyte Esterase Negative (NEG) Urine RBC 0 /HPF (0-2) Urine WBC Occ /HPF (0-4) Urine Squamous Epithelial Cells Many /LPF Urine Bacteria Few /HPF (0-FEW) Urine Mucus Marked /LPF Laboratory Tests 10/18/18 17:07 Laboratory Tests 10/18/18 17:07 EKG EKG EKG obtained 10/18/18 at 1747 Interpreted by ER physician Sinus rhythm Rate 56 No STEMI Radiology/Procedures Radiology/Procedures PROCEDURE: CT ABD PELV W/ IV CONTRST ONLY CT abdomen and pelvis with contrast. HISTORY: Abdominal pain CT scan of the abdomen and pelvis was done using 75 mL Omnipaque 300 contrast. Lung bases are clear. There is no pleural effusion. There are old right rib fractures. 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 There is sclerosis at the SI joints. Liver is normal in appearance. There is no calcified gallstone or gallbladder wall thickening. Spleen and adrenal glands are normal. Pancreas is normal. There is no mass or hydronephrosis in the kidneys. There is scarring and decreased size of the right kidney. There is no adenopathy. Bowel pattern is normal. Appendix is normal. Uterus and ovaries are unremarkable. There is no free fluid in the pelvis. There is diverticulosis of the colon without an acute diverticulitis. Small bowel pattern is unremarkable. There is degenerative spondylolisthesis at L4-5. There is no lumbar fracture. IMPRESSION: 1. Scarring with decreased size right kidney 2. No abdominal or pelvic mass or acute finding noted. 3. No renal or ureteral calculus evident. 4. Normal appendix. 5. SI joint sclerosis and arthritis. Electronically signed by: Azael Perez MD (10/18/2018 6:48 PM) [facility] DICTATED and SIGNED BY: AZAEL PEREZ MD DATE: 10/18/181847 Course & Med Decision Making Course & Med Decision Making Pertinent Labs and Imaging studies reviewed. (See chart for details) 1900: Patient was evaluated in the ER for complaints of abdominal pain and intermittent nausea and vomiting. Patient had labs, CT of abd/pelvis, and EKG obtained. Patient has had no active vomiting while in the ER and reports she is feeling better following IV fluids and do some nausea medicine. EKG with no acute ST elevation or STEMI and troponin was negative. CT with no acute findings. UA negative for infection. Serum hCG negative. With improved symptoms discussed home discharge with patient and her . Will provide patient with prescriptions for Zofran and dicyclomine. Patient advised on follow-up with her primary care physician and/or gastrointestinal doctor for reevaluation and further care as needed. Dragon Disclaimer Dragon Disclaimer This electronic medical record was generated, in whole or in part, using a voice recognition dictation system. Departure Departure Impression: Primary Impression: Abdominal pain Disposition: HOME, SELF-CARE Condition: STABLE Referrals: NO PCP (PCP) BONG THOMPSON MD Patient Instructions: Abdominal Pain, Nausea and Vomiting Additional Instructions: Drink plenty of fluids and slowly advance diet as tolerated Follow-up with your primary doctor and or a gastrointestinal doctor for re evaluation and further care. Scripts Dicyclomine Hcl (DICYCLOMINE HCL) 10 Mg Capsule 1 CAP PO PRN Q6HRS PRN for PAIN, #10 CAP 0 Refills Prov: HARRY BRAMBILA APRN 10/18/18 Ondansetron (ONDANSETRON ODT) 4 Mg Tab.rapdis 1 TAB PO PRN Q6-8HRS PRN for PAIN, #8 TAB 0 Refills Prov: HARRY BRAMBILA APRN 10/18/18 HARRY BRAMBILA APRN Oct 18, 2018 17:58
[2018-10-18 17:59] LABS: CREATININE 0.7 mg/dL (0.6-1.0); GFR 88.9; POTASSIUM 3.7 mmol/L (3.5-5.1)
[2018-10-18 18:04] LABS: ALBUMIN 3.3 g/dL (3.4-5.0); ALBUMIN/GLOBULIN RATIO 0.6 (1.0-1.7); MAGNESIUM 1.7 mg/dL (1.8-2.4); TOTAL BILIRUBIN 0.4 mg/dL (0.2-1.0); TOTAL PROTEIN 8.4 g/dL (6.4-8.2)
[2018-10-18] MEDS ORDERED: IOHEXOL 300 MG/ML 100ML VIAL. IV ONE (18:15)
[2018-10-18 18:43] LABS: BILIRUBIN,URINE NEGATIVE (NEG); CLARITY,URINE CLEAR; COLOR,URINE YELLOW; NITRITE,URINE NEGATIVE (NEG); PH,URINE 5.5; PROTEIN,URINE 30 mg/dL (NEG-TRACE)
[2018-10-18 18:50] LABS: BACTERIA,URINE FEW /HPF (0-FEW); RBC,URINE 0 /HPF (0-2); SQUAMOUS EPITHELIAL CELL,UR MANY /LPF; WBC,URINE OCC /HPF (0-4)
--- NOTE | 2018-10-18 18:51 | RAD ---
CT abdomen and pelvis with contrast. HISTORY: Abdominal pain CT scan of the abdomen and pelvis was done using 75 mL Omnipaque 300 contrast. Lung bases are clear. There is no pleural effusion. There are old right rib fractures. 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 There is sclerosis at the SI joints. Liver is normal in appearance. There is no calcified gallstone or gallbladder wall thickening. Spleen and adrenal glands are normal. Pancreas is normal. There is no mass or hydronephrosis in the kidneys. There is scarring and decreased size of the right kidney. There is no adenopathy. Bowel pattern is normal. Appendix is normal. Uterus and ovaries are unremarkable. There is no free fluid in the pelvis. There is diverticulosis of the colon without an acute diverticulitis. Small bowel pattern is unremarkable. There is degenerative spondylolisthesis at L4-5. There is no lumbar fracture. IMPRESSION: 1. Scarring with decreased size right kidney 2. No abdominal or pelvic mass or acute finding noted. 3. No renal or ureteral calculus evident. 4. Normal appendix. 5. SI joint sclerosis and arthritis. Electronically signed by: Azael Sam MD (10/18/2018 6:48 PM) [facility]
[2018-10-18 19:07] VITALS: BP 131/71
[2018-10-18] MEDS ORDERED: DICY10CA3 PO (19:16)
[2018-10-18] MEDS ORDERED: ONDA4TAB12 PO (19:16)
--- NOTE | 2018-10-19 06:09 | EKG ---
[facility] [address] [place] [address] Test Date: 2018-10-18 Test Time: 17:47:31 Pat Name: THOMAS BROOKE Department: Room: Gender: F Transit Worker: : 1970 Requested By: HARRY BRAMBILA Order Number: [id number] Reading MD: Measurements Intervals [place] Rate: 56 P: 54 WA: 138 QRS: 43 QRSD: 100 T: 43 QT: 460 QTc: 447 Interpretive Statements SINUS RHYTHM NO SPECIFIC ECG ABNORMALITIES RI6.01 No previous ECG available for comparison
== END 2018-10-18 19:35 | disposition home or self-care (01) ==
LOC: ER 17:02
DX: R10.84 Generalized abdominal pain (principal); R11.10 Vomiting, unspecified
CPT/HCPCS: 36415; 74177; 80053; 81001; 83690; 83735; 84484; 84702; 85025; 93005; 96374; 99285; J2405; Q9967

== ENCOUNTER 2019-03-29 08:08 | Inpatient (IN) | payer SELFPAY ==
[~2019-03-29] VITALS: Ht 162.6 cm; Wt 79.4 kg
[~2019-03-29 08:08] MED LIST changes: +DICY10CA3 PO; +ONDA4TAB12 PO
[2019-03-29] MEDS ORDERED: IV NORMAL SALINE 1000ML BAG 1,000 ML IV SCH (08:35)
[2019-03-29] MEDS ORDERED: IPRATRPIUM/ALBUTEROL 0.5/2.5MG 3 ML NEBU. NEB ONE ×2 (08:45→09:15)
--- NOTE | 2019-03-29 09:00 | RAD ---
PORTABLE CHEST 1V Clinical Indication: Shortness of breath. Comparison: Two-view chest October 02, 2017. Findings: Atherosclerotic aortic arch. Stable mild cardiomegaly. Lungs are clear. There is no pneumothorax. No pleural effusion is appreciated. No acute bone abnormality. Old right posterior rib fractures. IMPRESSION: No acute cardiopulmonary process. Electronically signed by: Chencho Acevedo MD (03/29/2019 8:58 AM) [facility]
--- NOTE | 2019-03-29 09:05 | PHYS DOC ---
Past Medical History Past Medical History: No Pertinent History, Other Additional Past Medical Histor: UNKNOWN HEART CONDITION Past Surgical History: Other Additional Past Surgical Histo: UNKNOWN HEART SURGERY Alcohol Use: None Drug Use: None Adult General Chief Complaint Chief Complaint: BACK PAIN - NO INJURY HPI HPI Patient is a 49-year-old female who presents with report of cough, fever and shortness of breath that started yesterday. Shortness of breath is worsened with minimal exertion. Patient denies any chest pain. History is very limited as patient does not speak any [place] and welcome desk agent services unable to locate an welcome desk agent for her language. Patient does have friend who is present who has very limited knowledge of [place] and provided above history.[] Review of Systems Review of Systems Constitutional: Positive fever[] HENT: Positive sore throat [] Respiratory: Positive cough and shortness of breath [] Cardiovascular: No additional information not addressed in HPI [] Unable to fully assess review of systems due to language barrier. Current Medications Current Medications Current Medications Medications (Trade) Dose Ordered Sig/Graciela Start Time Stop Time Status Last Admin Dose Admin Albuterol/ Ipratropium (Duoneb) 3 ml 1X ONCE 03/29/19 09:15 03/29/19 09:16 DC 03/29/19 09:11 3 ML Ceftriaxone Sodium (Rocephin) 1 gm 1X ONCE 03/29/19 10:45 03/29/19 10:46 DC 03/29/19 11:03 1 GM Sodium Chloride 1,000 ml @ 1,000 mls/hr Q1H 03/29/19 08:35 03/29/19 09:34 DC 03/29/19 08:35 1,000 MLS/HR Allergies Allergies Allergies Coded Allergies Type Severity Reaction Last Updated Verified No Known Drug Allergies 12/22/13 No Physical Exam Physical Exam Constitutional: Well developed, well nourished, in mild respiratory distress, non-toxic appearance. [] HENT: Normocephalic, atraumatic, bilateral external ears normal, pharyngeal erythema is noted with tonsillar swelling, nose normal. [] Eyes: PERRLA, EOMI, conjunctiva normal, no discharge. [] Neck: Normal range of motion, no tenderness, supple. [] Cardiovascular: Regular rate and rhythm[] Lungs & Thorax: Fine rhonchi within 3-4 and expiratory wheezes are noted bilaterally to auscultation [] Abdomen: Bowel sounds normal, soft, no tenderness. [] Skin: Warm, dry, no erythema, no rash. [] Extremities: No tenderness, no cyanosis, no clubbing, ROM intact. [] Neurologic: Awake and alert, no obvious focal deficits noted. [] Current Patient Data Vital Signs Vital Signs Date Time Temp Pulse Resp B/P (MAP) Pulse Ox O2 Delivery O2 Flow Rate FiO2 03/29/19 11:00 76 19 134/57 (82) 97 Nasal Cannula 3.0 03/29/19 08:08 100.0 100.0 Lab Values Laboratory Tests Test 03/29/19 09:05 03/29/19 09:12 White Blood Count 6.9 x10^3/uL (4.0-11.0) Red Blood Count 4.13 x10^6/uL (3.50-5.40) Hemoglobin 13.6 g/dL (12.0-15.5) Hematocrit 39.7 % (36.0-47.0) Mean Corpuscular Volume 96 fL (79-100) Mean Corpuscular Hemoglobin 33 pg (25-35) Mean Corpuscular Hemoglobin Concent 34 g/dL (31-37) Red Cell Distribution Width 13.2 % (11.5-14.5) Platelet Count 137 x10^3/uL (140-400) L Neutrophils (%) (Auto) 71 % (31-73) Lymphocytes (%) (Auto) 14 % (24-48) L Monocytes (%) (Auto) 13 % (0-9) H Eosinophils (%) (Auto) 2 % (0-3) Basophils (%) (Auto) 1 % (0-3) Neutrophils # (Auto) 4.9 x10^3/uL (1.8-7.7) Lymphocytes # (Auto) 1.0 x10^3/uL (1.0-4.8) Monocytes # (Auto) 0.9 x10^3/uL (0.0-1.1) Eosinophils # (Auto) 0.1 x10^3/uL (0.0-0.7) Basophils # (Auto) 0.0 x10^3/uL (0.0-0.2) D-Dimer (Yee) 0.32 ug/mlFEU (0.00-0.50) Sodium Level 135 mmol/L (136-145) L Potassium Level 3.5 mmol/L (3.5-5.1) Chloride Level 99 mmol/L (98-107) Carbon Dioxide Level 30 mmol/L (21-32) Anion Gap 6 (6-14) Blood Urea Nitrogen 10 mg/dL (7-20) Creatinine 0.8 mg/dL (0.6-1.0) Estimated GFR (Cockcroft-Gault) 75.9 BUN/Creatinine Ratio 13 (6-20) Glucose Level 195 mg/dL (70-99) H Lactic Acid Level 1.4 mmol/L (0.4-2.0) Calcium Level 8.3 mg/dL (8.5-10.1) L Total Bilirubin 0.6 mg/dL (0.2-1.0) Aspartate Amino Transferase (AST) 24 U/L (15-37) Alanine Aminotransferase (ALT) 23 U/L (14-59) Alkaline Phosphatase 106 U/L (46-116) Troponin I Quantitative < 0.017 ng/mL (0.000-0.055) KO-Bjc-U-Type Natriuretic Peptide 31 pg/mL (0-124) Total Protein 8.1 g/dL (6.4-8.2) Albumin 3.1 g/dL (3.4-5.0) L Albumin/Globulin Ratio 0.6 (1.0-1.7) L Influenza Type A Antigen Negative (NEGATIVE) Influenza Type B Antigen Negative (NEGATIVE) Group A Streptococcus Rapid Positive (NEGATIVE) Laboratory Tests 03/29/19 09:05 Laboratory Tests 03/29/19 09:05 EKG EKG [] Radiology/Procedures Radiology/Procedures [] Impressions: PROCEDURE: PORTABLE CHEST 1V PORTABLE CHEST 1V Clinical Indication: Shortness of breath. Comparison: Two-view chest October 02, 2017. Findings: Atherosclerotic aortic arch. Stable mild cardiomegaly. Lungs are clear. There is no pneumothorax. No pleural effusion is appreciated. No acute bone abnormality. Old right posterior rib fractures. IMPRESSION: No acute cardiopulmonary process. Electronically signed by: Chencho Acevedo MD (03/29/2019 8:58 AM) [facility] Course & Med Decision Making Course & Med Decision Making Pertinent Labs and Imaging studies reviewed. (See chart for details) [] Dragon Disclaimer Dragon Disclaimer This electronic medical record was generated, in whole or in part, using a voice recognition dictation system. Departure Departure Impression: Primary Impression: Acute bronchospasm Additional Impressions: Hypoxemia Strep throat Disposition: ADMITTED INPATIENT Admitting Physician: MANDY (Dr. Barclay) Condition: IMPROVED Referrals: NO PCP (PCP) Problem Qualifiers FLY CASTRO Jr. DO Mar 29, 2019 09:05
[2019-03-29 09:38] LABS: ALBUMIN 3.1 g/dL (3.4-5.0); ALBUMIN/GLOBULIN RATIO 0.6 (1.0-1.7); CREATININE 0.8 mg/dL (0.6-1.0); GFR 75.9; POTASSIUM 3.5 mmol/L (3.5-5.1); TOTAL BILIRUBIN 0.6 mg/dL (0.2-1.0); TOTAL PROTEIN 8.1 g/dL (6.4-8.2)
[2019-03-29 09:40] LABS: CALCIUM 8.3 mg/dL (8.5-10.1)
[2019-03-29 09:42] LABS: BASO % 1 % (0-3); EOS # 0.1 x10^3/uL (0.0-0.7); EOS % 2 % (0-3); HEMATOCRIT 39.7 % (36.0-47.0); HEMOGLOBIN 13.6 g/dL (12.0-15.5); LYMPH % 14 % (24-48); MEAN CORPUSCULAR HEMOGLOBIN 33 pg (25-35); MEAN CORPUSCULAR HGB CONC 34 g/dL (31-37); MEAN CORPUSCULAR VOLUME 96 fL (79-100); MONO # 0.9 x10^3/uL (0.0-1.1); MONO % 13 % (0-9); NEUT # 4.9 x10^3/uL (1.8-7.7); NEUT % 71 % (31-73); PLATELET COUNT 137 x10^3/uL (140-400); RED BLOOD COUNT 4.13 x10^6/uL (3.50-5.40); RED CELL DISTRIBUTION WIDTH 13.2 % (11.5-14.5); WHITE BLOOD COUNT 6.9 x10^3/uL (4.0-11.0)
[2019-03-29 09:53] LABS: INFLUENZA A PATIENT NEGATIVE (NEGATIVE); INFLUENZA B PATIENT NEGATIVE (NEGATIVE)
[2019-03-29] MEDS ORDERED: cefTRIAXone IV Push 1 GM VIAL. IVP ONE (10:45)
--- NOTE | 2019-03-29 11:52 | PDOC1 ---
History and Physical Date of Admission Date of Admission DATE: 03/29/19 TIME: 11:52 Identification/Chief Complaint Chief Complaint Shortness of breath Source Source: Patient History of Present Illness History of Present Illness Ms Diaz is a 49-year-old female, [place]ian speaking (though our fishing vessel mate line is not able to communicate with her) w/ PMHx DM2, obesity, fatty liver who presents with report of cough, fever and shortness of breath that started yesterday. Shortness of breath is worsened with minimal exertion. Patient denies any chest pain. History is very limited as patient does not speak any Pakistani and she does have friend who is present who has very limited knowledge of Pakistani. ED obtained a CXR that was clear, but a positive strep test. She was notably hypoxic, 84% on room air, no hx of oxygen therapy, non-smoker. Called for admission for further care Past Medical History Cardiovascular: No pertinent hx Pulmonary: No pertinent hx GI: No pertinent hx Heme/Onc: No pertinent hx Hepatobiliary: No pertinent hx Psych: No pertinent hx Rheumatologic: No pertinent hx Infectious disease: No pertinent hx ENT: No pertinent hx Renal/: No pertinent hx Endocrine: Diabetes Dermatology: No pertinent hx Past Surgical History Past Surgical History: Other (Cardiac surgery, unable to explain in detail) Family History Family History: Diabetes Social History Smoke: No ALCOHOL: none Drugs: None Current Medications Current Medications Current Medications Sodium Chloride 1,000 ml @ 1,000 mls/hr Q1H IV Last administered on 03/29/19at 08:35; Start 03/29/19 at 08:35; Stop 03/29/19 at 09:34; Status DC Albuterol/ Ipratropium (Duoneb) 3 ml 1X ONCE NEB Last administered on 03/29/19at 08:57; Start 03/29/19 at 08:45; Stop 03/29/19 at 08:46; Status DC Albuterol/ Ipratropium (Duoneb) 3 ml 1X ONCE NEB Last administered on 03/29/19at 09:11; Start 03/29/19 at 09:15; Stop 03/29/19 at 09:16; Status DC Ceftriaxone Sodium (Rocephin) 1 gm 1X ONCE IVP Last administered on 03/29/19at 11:03; Start 03/29/19 at 10:45; Stop 03/29/19 at 10:46; Status DC Active Scripts Active Dicyclomine Hcl 10 Mg Capsule 1 Cap PO PRN Q6HRS PRN Ondansetron Odt (Ondansetron) 4 Mg Tab.rapdis 1 Tab PO PRN Q6-8HRS PRN Prednisone 50 Mg Tablet 1 Tab PO DAILY Tessalon Perle (Benzonatate) 100 Mg Capsule 1 Cap PO TID Amoxicillin 875 Mg Tablet 1 Tab PO BID Amaryl (Glimepiride) 2 Mg Tablet 2 Mg PO DAILY Glucophage (Metformin Hcl) 1,000 Mg Tablet 1,000 Mg PO BIDWMEALS Mucinex (Guaifenesin) 600 Mg Tablet.er 600 Mg PO BID 5 Days Doxycycline Hyclate 100 Mg Tablet 100 Mg PO BID 3 Days Allergies Allergies: Coded Allergies: No Known Drug Allergies (Unverified , 12/22/13) ROS Review of System Difficult to obtain due to language barrier General: YES: Fatigue, Malaise; No: Chills, Night Sweats, Appetite, Other PSYCHOLOGICAL ROS: No: Anxiety, Behavioral Disorder, Concentration difficultie, Decreased libido, Depression, Disorientation, Hallucinations, Hostility, Irritablity, Memory difficulties, Mood Swings, Obsessive thoughts, Physical abuse, Sexual abuse, Sleep disturbances, Suicidal ideation, Other Eyes: No Blurry vision, No Decreased vision, No Double vision, No Dry eyes, No Excessive tearing, No Eye Pain, No Itchy Eyes, No Loss of vision, No Phot ophobia, No Scotomata, No Uses contacts, No Uses glasses, No Other HEENT: YES: Sore Throat; No: Heacaches, Visual Changes, Hearing change, Nasal congestion, Nasal discharge, Oral lesions, Sinus pain, Epistaxis, Sneezing, Snoring, Tinnitus, Vertigo, Vocal changes, Other ALLERGY AND IMMUNOLOGY: No: Hives, Insect Bite Sensitivity, Itchy/Watery Eyes, Nasal Congestion, Post Nasal Drip, Seasonal Allergies, Other Hematological and Lymphatic: No: Bleeding Problems, Blood Clots, Blood Transfusions, Brusing, Night Sweats, Pallor, Swollen Lymph Nodes, Other ENDOCRINE: No: Breast Changes, Galactorrhea, Hair Pattern Changes, Hot Flashes, Malaise/lethargy, Mood Swings, Palpitations, Polydipsia/polyuria, Skin Changes, Temperature Intolerance, Unexpected Weight Changes, Other Breast: No New/Changing Breast Lumps, No Nipple changes, No Nipple discharge, No Other Respiratory: YES: Shortness of breath; No: Cough, Hemoptysis, Orthopnea, Pleuritic Pain, SOB with excertion, Sputum Changes, Stridor, Tachypnea, Wheezing, Other Cardiovascular: No Chest Pain, No Palpitations, No Orthopnea, No Paroxysmal Noc. Dyspnea, No Edema, No Lt Headedness, No Other Gastrointestinal: No Nausea, No Vomiting, No Abdominal Pain, No Diarrhea, No Constipation, No Melena, No Hematochezia, No Other Genitourinary: No Dysuria, No Frequency, No Incontinence, No Hematuria, No Retention, No Discharge, No Urgency, No Pain, No Flank Pain, No Other, No , No , No , No , No , No , No Musculoskeletal: No Gait Disturbance, No Joint Pain, No Joint Stiffness, No Joint Swelling, No Muscle Pain, No Muscular Weakness, No Pain In:, No Swelling In:, No Other Neurological: No Behavorial Changes, No Bowel/Bladder ControlChng, No Confusion, No Dizziness, No Gait Disturbance, No Headaches, No Impaired Coord/balance, No Memory Loss, No Numbness/Tingling, No Seizures, No Speech Problems, No Tremors, No Visual Changes, No Weakness, No Other Skin: No Dry Skin, No Eczema, No Hair Changes, No Lumps, No Mole Changes, No Mottling, No Nail Changes, No Pruritus, No Rash, No Skin Lesion Changes, No Other, No Acne Physical Exam General: Alert, Oriented X3, Cooperative, No acute distress HEENT: Atraumatic, PERRLA, EOMI, Mucous membr. moist/pink, Other (Large tonsils with exudate) Lungs: Other (scattered wheezing) Heart: S1S2, RRR, no thrills, no rubs Abdomen: Normal bowel sounds, Soft, No tenderness, No hepatosplenomegaly, No masses Rectal Exam: not examined Skin: No rashes, No breakdown, No significant lesion Neuro: Normal gait, Normal speech, Strength at 5/5 X4 ext, Normal tone, Sensation intact, Cranial nerves 3-12 NL, Reflexes 2+ Psych/Mental Status: Mental status NL, Mood NL Vitals Vitals Vital Signs Date Time Temp Pulse Resp B/P (MAP) Pulse Ox O2 Delivery O2 Flow Rate FiO2 11/28/19 11:00 76 19 134/57 (82) 97 Nasal Cannula 3.0 03/29/19 08:08 100.0 100.0 Labs Labs Laboratory Tests Test 03/29/19 09:05 White Blood Count 6.9 x10^3/uL (4.0-11.0) Red Blood Count 4.13 x10^6/uL (3.50-5.40) Hemoglobin 13.6 g/dL (12.0-15.5) Hematocrit 39.7 % (36.0-47.0) Mean Corpuscular Volume 96 fL (79-100) Mean Corpuscular Hemoglobin 33 pg (25-35) Mean Corpuscular Hemoglobin Concent 34 g/dL (31-37) Red Cell Distribution Width 13.2 % (11.5-14.5) Platelet Count 137 x10^3/uL (140-400) Neutrophils (%) (Auto) 71 % (31-73) Lymphocytes (%) (Auto) 14 % (24-48) Monocytes (%) (Auto) 13 % (0-9) Eosinophils (%) (Auto) 2 % (0-3) Basophils (%) (Auto) 1 % (0-3) Neutrophils # (Auto) 4.9 x10^3/uL (1.8-7.7) Lymphocytes # (Auto) 1.0 x10^3/uL (1.0-4.8) Monocytes # (Auto) 0.9 x10^3/uL (0.0-1.1) Eosinophils # (Auto) 0.1 x10^3/uL (0.0-0.7) Basophils # (Auto) 0.0 x10^3/uL (0.0-0.2) D-Dimer (Yee) 0.32 ug/mlFEU (0.00-0.50) Sodium Level 135 mmol/L (136-145) Potassium Level 3.5 mmol/L (3.5-5.1) Chloride Level 99 mmol/L (98-107) Carbon Dioxide Level 30 mmol/L (21-32) Anion Gap 6 (6-14) Blood Urea Nitrogen 10 mg/dL (7-20) Creatinine 0.8 mg/dL (0.6-1.0) Estimated GFR (Cockcroft-Gault) 75.9 BUN/Creatinine Ratio 13 (6-20) Glucose Level 195 mg/dL (70-99) Lactic Acid Level 1.4 mmol/L (0.4-2.0) Calcium Level 8.3 mg/dL (8.5-10.1) Total Bilirubin 0.6 mg/dL (0.2-1.0) Aspartate Amino Transf (AST/SGOT) 24 U/L (15-37) Alanine Aminotransferase (ALT/SGPT) 23 U/L (14-59) Alkaline Phosphatase 106 U/L (46-116) Troponin I Quantitative < 0.017 ng/mL (0.000-0.055) CY-Cqf-H-Type Natriuretic Peptide 31 pg/mL (0-124) Total Protein 8.1 g/dL (6.4-8.2) Albumin 3.1 g/dL (3.4-5.0) Albumin/Globulin Ratio 0.6 (1.0-1.7) Influenza Type A Antigen Negative (NEGATIVE) Influenza Type B Antigen Negative (NEGATIVE) Laboratory Tests Test 03/29/19 09:05 White Blood Count 6.9 x10^3/uL (4.0-11.0) Red Blood Count 4.13 x10^6/uL (3.50-5.40) Hemoglobin 13.6 g/dL (12.0-15.5) Hematocrit 39.7 % (36.0-47.0) Mean Corpuscular Volume 96 fL (79-100) Mean Corpuscular Hemoglobin 33 pg (25-35) Mean Corpuscular Hemoglobin Concent 34 g/dL (31-37) Red Cell Distribution Width 13.2 % (11.5-14.5) Platelet Count 137 x10^3/uL (140-400) Neutrophils (%) (Auto) 71 % (31-73) Lymphocytes (%) (Auto) 14 % (24-48) Monocytes (%) (Auto) 13 % (0-9) Eosinophils (%) (Auto) 2 % (0-3) Basophils (%) (Auto) 1 % (0-3) Neutrophils # (Auto) 4.9 x10^3/uL (1.8-7.7) Lymphocytes # (Auto) 1.0 x10^3/uL (1.0-4.8) Monocytes # (Auto) 0.9 x10^3/uL (0.0-1.1) Eosinophils # (Auto) 0.1 x10^3/uL (0.0-0.7) Basophils # (Auto) 0.0 x10^3/uL (0.0-0.2) D-Dimer (Yee) 0.32 ug/mlFEU (0.00-0.50) Sodium Level 135 mmol/L (136-145) Potassium Level 3.5 mmol/L (3.5-5.1) Chloride Level 99 mmol/L (98-107) Carbon Dioxide Level 30 mmol/L (21-32) Anion Gap 6 (6-14) Blood Urea Nitrogen 10 mg/dL (7-20) Creatinine 0.8 mg/dL (0.6-1.0) Estimated GFR (Cockcroft-Gault) 75.9 BUN/Creatinine Ratio 13 (6-20) Glucose Level 195 mg/dL (70-99) Lactic Acid Level 1.4 mmol/L (0.4-2.0) Calcium Level 8.3 mg/dL (8.5-10.1) Total Bilirubin 0.6 mg/dL (0.2-1.0) Aspartate Amino Transf (AST/SGOT) 24 U/L (15-37) Alanine Aminotransferase (ALT/SGPT) 23 U/L (14-59) Alkaline Phosphatase 106 U/L (46-116) Troponin I Quantitative < 0.017 ng/mL (0.000-0.055) CT-Yft-O-Type Natriuretic Peptide 31 pg/mL (0-124) Total Protein 8.1 g/dL (6.4-8.2) Albumin 3.1 g/dL (3.4-5.0) Albumin/Globulin Ratio 0.6 (1.0-1.7) Influenza Type A Antigen Negative (NEGATIVE) Influenza Type B Antigen Negative (NEGATIVE) Images Images CXR - Atherosclerotic aortic arch. Stable mild cardiomegaly. Lungs are clear. There is no pneumothorax. No pleural effusion is appreciated. No acute bone abnormality. Old right posterior rib fractures. IMPRESSION: No acute cardiopulmonary process. VTE Prophylaxis Ordered VTE Prophylaxis Devices: No VTE Pharmacological Prophylaxi: Yes Assessment/Plan Assessment/Plan A/P: Strep throat - will place on cephalosporin, having difficulty swallowing. Sob, acute hypoxic resp failure - likely bronchitis, will treat as such with karla garcia DM2, hba1c 8.2 last year - will place on sliding scale Obesity - attempted counseling on weight loss Fatty liver - previously noted, likely 2/2 DM2, will treat FEN - ADA diet PPX - lovenox FULL CODE Dispo - inpatient for acute hypoxia MEGGAN EPSTEIN MD Mar 29, 2019 11:52
[2019-03-29 12:41] LABS: BILIRUBIN,URINE NEGATIVE (NEG); CLARITY,URINE CLOUDY; COLOR,URINE YELLOW; NITRITE,URINE NEGATIVE (NEG); PROTEIN,URINE NEGATIVE (NEG-TRACE)
[2019-03-29 13:07] LABS: SQUAMOUS EPITHELIAL CELL,UR MOD /LPF
[2019-03-29 13:08] LABS: BACTERIA,URINE 0 /HPF (0-FEW)
[2019-03-29 14:26] VITALS: BP 119/65
[2019-03-29] MEDS: IPRATRPIUM/ALBUTEROL 0.5/2.5MG 3 ML NEBU. NEB SCH ×2 (15:24→20:22)
[2019-03-29] MEDS ORDERED: ONDANSETRON ODT 4 MG TAB.RAPDIS. PO PRN (16:30)
[2019-03-29] MEDS ORDERED: DEXTROSE 50% 25 GM / 50ML DISP.SYRIN. IV PRN (16:30)
[2019-03-29] MEDS: metFORMIN 500 MG TABLET PO SCH (17:28)
[2019-03-29] MEDS: INSULIN LISPRO 300 UNITS/3 ML VIAL. SQ SCH ×2 (17:31→21:00)
[2019-03-29 19:30] VITALS: BP 110/56
[2019-03-29] MEDS: ACETAMINOPHEN 325 MG TABLET. PO PRN (21:32)
[2019-03-29] MEDS: BENZONATATE 100 MG CAPSULE. PO SCH (21:35)
[2019-03-29] MEDS: ENOXAPARIN 40 MG/0.4 ML SYRINGE. SQ SCH (22:00)
[2019-03-29 23:57] VITALS: BP 115/62
[2019-03-30 03:55] VITALS: BP 104/60
[2019-03-30 05:44] LABS: BASO % 1 % (0-3); EOS # 0.1 x10^3/uL (0.0-0.7); EOS % 2 % (0-3); HEMATOCRIT 39.6 % (36.0-47.0); HEMOGLOBIN 13.2 g/dL (12.0-15.5); LYMPH # 1.9 x10^3/uL (1.0-4.8); LYMPH % 31 % (24-48); MEAN CORPUSCULAR HEMOGLOBIN 33 pg (25-35); MEAN CORPUSCULAR HGB CONC 33 g/dL (31-37); MEAN CORPUSCULAR VOLUME 98 fL (79-100); MONO # 0.7 x10^3/uL (0.0-1.1); MONO % 11 % (0-9); NEUT # 3.5 x10^3/uL (1.8-7.7); NEUT % 56 % (31-73); PLATELET COUNT 127 x10^3/uL (140-400); RED BLOOD COUNT 4.05 x10^6/uL (3.50-5.40); RED CELL DISTRIBUTION WIDTH 13.6 % (11.5-14.5); WHITE BLOOD COUNT 6.2 x10^3/uL (4.0-11.0)
[2019-03-30 06:03] LABS: CALCIUM 8.7 mg/dL (8.5-10.1); CREATININE 0.7 mg/dL (0.6-1.0); GFR 88.6; POTASSIUM 3.8 mmol/L (3.5-5.1)
[2019-03-30 07:20] VITALS: BP 124/55
--- NOTE | 2019-03-30 07:29 | PDOC ---
PROGRESS NOTES History of Present Illness History of Present Illness Images Images CXR - Atherosclerotic aortic arch. Stable mild cardiomegaly. Lungs are clear. There is no pneumothorax. No pleural effusion is appreciated. No acute bone abnormality. Old right posterior rib fractures. IMPRESSION: No acute cardiopulmonary process. VTE Prophylaxis Ordered VTE Prophylaxis Devices: No VTE Pharmacological Prophylaxi: Yes Assessment/Plan Strep throat - cont cephalosporin, having difficulty swallowing. Sob, acute hypoxic resp failure - likely bronchitis, will treat as such with nebs DM2, hba1c 8.2 last year - will place on sliding scale Obesity - attempted counseling on weight loss Fatty liver - previously noted, likely 2/2 DM2, will treat FEN - ADA diet PPX - lovenox FULL CODE Dispo - inpatient for acute hypoxia pulm consult Vitals Vitals Vital Signs Date Time Temp Pulse Resp B/P (MAP) Pulse Ox O2 Delivery O2 Flow Rate FiO2 03/30/19 03:55 99.0 70 18 104/60 (75) 92 Nasal Cannula 3.0 99.0 Physical Exam General: Alert, Oriented X3, Cooperative, No acute distress Heart: Regular rate Lungs: Clear Abdomen: Normal bowel sounds, Soft, No tenderness, No hepatosplenomegaly, No masses Skin: No rashes, No breakdown, No significant lesion Labs LABS CT abdomen and pelvis with contrast. HISTORY: Abdominal pain CT scan of the abdomen and pelvis was done using 75 mL Omnipaque 300 contrast. Lung bases are clear. There is no pleural effusion. There are old right rib fractures. 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 There is sclerosis at the SI joints. Liver is normal in appearance. There is no calcified gallstone or gallbladder wall thickening. Spleen and adrenal glands are normal. Pancreas is normal. There is no mass or hydronephrosis in the kidneys. There is scarring and decreased size of the right kidney. There is no adenopathy. Bowel pattern is normal. Appendix is normal. Uterus and ovaries are unremarkable. There is no free fluid in the pelvis. There is diverticulosis of the colon without an acute diverticulitis. Small bowel pattern is unremarkable. There is degenerative spondylolisthesis at L4-5. There is no lumbar fracture. IMPRESSION: 1. Scarring with decreased size right kidney 2. No abdominal or pelvic mass or acute finding noted. 3. No renal or ureteral calculus evident. 4. Normal appendix. 5. SI joint sclerosis and arthritis. Electronically signed by: Azael Perez MD (10/18/2018 6:48 PM) [facility] DICTATED and SIGNED BY: AZAEL PEREZ MD DATE: 10/18/181847 Laboratory Tests Test 03/29/19 09:05 03/29/19 09:12 03/29/19 12:25 03/29/19 16:53 White Blood Count 6.9 x10^3/uL (4.0-11.0) Red Blood Count 4.13 x10^6/uL (3.50-5.40) Hemoglobin 13.6 g/dL (12.0-15.5) Hematocrit 39.7 % (36.0-47.0) Mean Corpuscular Volume 96 fL (79-100) Mean Corpuscular Hemoglobin 33 pg (25-35) Mean Corpuscular Hemoglobin Concent 34 g/dL (31-37) Red Cell Distribution Width 13.2 % (11.5-14.5) Platelet Count 137 x10^3/uL (140-400) Neutrophils (%) (Auto) 71 % (31-73) Lymphocytes (%) (Auto) 14 % (24-48) Monocytes (%) (Auto) 13 % (0-9) Eosinophils (%) (Auto) 2 % (0-3) Basophils (%) (Auto) 1 % (0-3) Neutrophils # (Auto) 4.9 x10^3/uL (1.8-7.7) Lymphocytes # (Auto) 1.0 x10^3/uL (1.0-4.8) Monocytes # (Auto) 0.9 x10^3/uL (0.0-1.1) Eosinophils # (Auto) 0.1 x10^3/uL (0.0-0.7) Basophils # (Auto) 0.0 x10^3/uL (0.0-0.2) D-Dimer (Yee) 0.32 ug/mlFEU (0.00-0.50) Sodium Level 135 mmol/L (136-145) Potassium Level 3.5 mmol/L (3.5-5.1) Chloride Level 99 mmol/L (98-107) Carbon Dioxide Level 30 mmol/L (21-32) Anion Gap 6 (6-14) Blood Urea Nitrogen 10 mg/dL (7-20) Creatinine 0.8 mg/dL (0.6-1.0) Estimated GFR (Cockcroft-Gault) 75.9 BUN/Creatinine Ratio 13 (6-20) Glucose Level 195 mg/dL (70-99) Lactic Acid Level 1.4 mmol/L (0.4-2.0) Calcium Level 8.3 mg/dL (8.5-10.1) Total Bilirubin 0.6 mg/dL (0.2-1.0) Aspartate Amino Transf (AST/SGOT) 24 U/L (15-37) Alanine Aminotransferase (ALT/SGPT) 23 U/L (14-59) Alkaline Phosphatase 106 U/L (46-116) Troponin I Quantitative < 0.017 ng/mL (0.000-0.055) BU-Wjs-T-Type Natriuretic Peptide 31 pg/mL (0-124) Total Protein 8.1 g/dL (6.4-8.2) Albumin 3.1 g/dL (3.4-5.0) Albumin/Globulin Ratio 0.6 (1.0-1.7) Influenza Type A Antigen Negative (NEGATIVE) Influenza Type B Antigen Negative (NEGATIVE) Group A Streptococcus Rapid Positive (NEGATIVE) Urine Collection Type Unknown Urine Color Yellow Urine Clarity Cloudy Urine pH 6.0 Urine Specific [place] 1.020 Urine Protein Negative mg/dL (NEG-TRACE) Urine Glucose (UA) 100 mg/dL (NEG) Urine Ketones (Stick) Negative mg/dL (NEG) Urine Blood Trace (NEG) Urine Nitrite Negative (NEG) Urine Bilirubin Negative (NEG) Urine Urobilinogen Dipstick 2.0 mg/dL (0.2 mg/dL) Urine Leukocyte Esterase Trace (NEG) Urine RBC 1-2 /HPF (0-2) Urine WBC 5-10 /HPF (0-4) Urine Squamous Epithelial Cells Mod /LPF Urine Bacteria 0 /HPF (0-FEW) Urine Mucus Mod /LPF Glucose (Fingerstick) 239 mg/dL (70-99) Test 03/29/19 20:44 03/30/19 04:58 Glucose (Fingerstick) 128 mg/dL (70-99) White Blood Count 6.2 x10^3/uL (4.0-11.0) Red Blood Count 4.05 x10^6/uL (3.50-5.40) Hemoglobin 13.2 g/dL (12.0-15.5) Hematocrit 39.6 % (36.0-47.0) Mean Corpuscular Volume 98 fL (79-100) Mean Corpuscular Hemoglobin 33 pg (25-35) Mean Corpuscular Hemoglobin Concent 33 g/dL (31-37) Red Cell Distribution Width 13.6 % (11.5-14.5) Platelet Count 127 x10^3/uL (140-400) Neutrophils (%) (Auto) 56 % (31-73) Lymphocytes (%) (Auto) 31 % (24-48) Monocytes (%) (Auto) 11 % (0-9) Eosinophils (%) (Auto) 2 % (0-3) Basophils (%) (Auto) 1 % (0-3) Neutrophils # (Auto) 3.5 x10^3/uL (1.8-7.7) Lymphocytes # (Auto) 1.9 x10^3/uL (1.0-4.8) Monocytes # (Auto) 0.7 x10^3/uL (0.0-1.1) Eosinophils # (Auto) 0.1 x10^3/uL (0.0-0.7) Basophils # (Auto) 0.0 x10^3/uL (0.0-0.2) Sodium Level 138 mmol/L (136-145) Potassium Level 3.8 mmol/L (3.5-5.1) Chloride Level 101 mmol/L (98-107) Carbon Dioxide Level 29 mmol/L (21-32) Anion Gap 8 (6-14) Blood Urea Nitrogen 11 mg/dL (7-20) Creatinine 0.7 mg/dL (0.6-1.0) Estimated GFR (Cockcroft-Gault) 88.6 Glucose Level 156 mg/dL (70-99) Calcium Level 8.7 mg/dL (8.5-10.1) Assessment and Plan Assessmemt and Plan Problems Medical Problems: (1) Acute bronchospasm Status: Acute (2) Hypoxemia Status: Acute (3) Strep throat Status: Acute Comment Review of Relevant I have reviewed the following items refugio (where applicable) has been applied. Labs Laboratory Tests Test 03/29/19 09:05 03/29/19 09:12 03/29/19 12:25 03/29/19 16:53 White Blood Count 6.9 x10^3/uL (4.0-11.0) Red Blood Count 4.13 x10^6/uL (3.50-5.40) Hemoglobin 13.6 g/dL (12.0-15.5) Hematocrit 39.7 % (36.0-47.0) Mean Corpuscular Volume 96 fL (79-100) Mean Corpuscular Hemoglobin 33 pg (25-35) Mean Corpuscular Hemoglobin Concent 34 g/dL (31-37) Red Cell Distribution Width 13.2 % (11.5-14.5) Platelet Count 137 x10^3/uL (140-400) Neutrophils (%) (Auto) 71 % (31-73) Lymphocytes (%) (Auto) 14 % (24-48) Monocytes (%) (Auto) 13 % (0-9) Eosinophils (%) (Auto) 2 % (0-3) Basophils (%) (Auto) 1 % (0-3) Neutrophils # (Auto) 4.9 x10^3/uL (1.8-7.7) Lymphocytes # (Auto) 1.0 x10^3/uL (1.0-4.8) Monocytes # (Auto) 0.9 x10^3/uL (0.0-1.1) Eosinophils # (Auto) 0.1 x10^3/uL (0.0-0.7) Basophils # (Auto) 0.0 x10^3/uL (0.0-0.2) D-Dimer (Yee) 0.32 ug/mlFEU (0.00-0.50) Sodium Level 135 mmol/L (136-145) Potassium Level 3.5 mmol/L (3.5-5.1) Chloride Level 99 mmol/L (98-107) Carbon Dioxide Level 30 mmol/L (21-32) Anion Gap 6 (6-14) Blood Urea Nitrogen 10 mg/dL (7-20) Creatinine 0.8 mg/dL (0.6-1.0) Estimated GFR (Cockcroft-Gault) 75.9 BUN/Creatinine Ratio 13 (6-20) Glucose Level 195 mg/dL (70-99) Lactic Acid Level 1.4 mmol/L (0.4-2.0) Calcium Level 8.3 mg/dL (8.5-10.1) Total Bilirubin 0.6 mg/dL (0.2-1.0) Aspartate Amino Transf (AST/SGOT) 24 U/L (15-37) Alanine Aminotransferase (ALT/SGPT) 23 U/L (14-59) Alkaline Phosphatase 106 U/L (46-116) Troponin I Quantitative < 0.017 ng/mL (0.000-0.055) XH-Zfc-D-Type Natriuretic Peptide 31 pg/mL (0-124) Total Protein 8.1 g/dL (6.4-8.2) Albumin 3.1 g/dL (3.4-5.0) Albumin/Globulin Ratio 0.6 (1.0-1.7) Influenza Type A Antigen Negative (NEGATIVE) Influenza Type B Antigen Negative (NEGATIVE) Group A Streptococcus Rapid Positive (NEGATIVE) Urine Collection Type Unknown Urine Color Yellow Urine Clarity Cloudy Urine pH 6.0 Urine Specific [place] 1.020 Urine Protein Negative mg/dL (NEG-TRACE) Urine Glucose (UA) 100 mg/dL (NEG) Urine Ketones (Stick) Negative mg/dL (NEG) Urine Blood Trace (NEG) Urine Nitrite Negative (NEG) Urine Bilirubin Negative (NEG) Urine Urobilinogen Dipstick 2.0 mg/dL (0.2 mg/dL) Urine Leukocyte Esterase Trace (NEG) Urine RBC 1-2 /HPF (0-2) Urine WBC 5-10 /HPF (0-4) Urine Squamous Epithelial Cells Mod /LPF Urine Bacteria 0 /HPF (0-FEW) Urine Mucus Mod /LPF Glucose (Fingerstick) 239 mg/dL (70-99) Test 03/29/19 20:44 03/30/19 04:58 Glucose (Fingerstick) 128 mg/dL (70-99) White Blood Count 6.2 x10^3/uL (4.0-11.0) Red Blood Count 4.05 x10^6/uL (3.50-5.40) Hemoglobin 13.2 g/dL (12.0-15.5) Hematocrit 39.6 % (36.0-47.0) Mean Corpuscular Volume 98 fL (79-100) Mean Corpuscular Hemoglobin 33 pg (25-35) Mean Corpuscular Hemoglobin Concent 33 g/dL (31-37) Red Cell Distribution Width 13.6 % (11.5-14.5) Platelet Count 127 x10^3/uL (140-400) Neutrophils (%) (Auto) 56 % (31-73) Lymphocytes (%) (Auto) 31 % (24-48) Monocytes (%) (Auto) 11 % (0-9) Eosinophils (%) (Auto) 2 % (0-3) Basophils (%) (Auto) 1 % (0-3) Neutrophils # (Auto) 3.5 x10^3/uL (1.8-7.7) Lymphocytes # (Auto) 1.9 x10^3/uL (1.0-4.8) Monocytes # (Auto) 0.7 x10^3/uL (0.0-1.1) Eosinophils # (Auto) 0.1 x10^3/uL (0.0-0.7) Basophils # (Auto) 0.0 x10^3/uL (0.0-0.2) Sodium Level 138 mmol/L (136-145) Potassium Level 3.8 mmol/L (3.5-5.1) Chloride Level 101 mmol/L (98-107) Carbon Dioxide Level 29 mmol/L (21-32) Anion Gap 8 (6-14) Blood Urea Nitrogen 11 mg/dL (7-20) Creatinine 0.7 mg/dL (0.6-1.0) Estimated GFR (Cockcroft-Gault) 88.6 Glucose Level 156 mg/dL (70-99) Calcium Level 8.7 mg/dL (8.5-10.1) Laboratory Tests Test 03/29/19 09:05 03/29/19 09:12 03/29/19 12:25 03/29/19 16:53 White Blood Count 6.9 x10^3/uL (4.0-11.0) Red Blood Count 4.13 x10^6/uL (3.50-5.40) Hemoglobin 13.6 g/dL (12.0-15.5) Hematocrit 39.7 % (36.0-47.0) Mean Corpuscular Volume 96 fL (79-100) Mean Corpuscular Hemoglobin 33 pg (25-35) Mean Corpuscular Hemoglobin Concent 34 g/dL (31-37) Red Cell Distribution Width 13.2 % (11.5-14.5) Platelet Count 137 x10^3/uL (140-400) Neutrophils (%) (Auto) 71 % (31-73) Lymphocytes (%) (Auto) 14 % (24-48) Monocytes (%) (Auto) 13 % (0-9) Eosinophils (%) (Auto) 2 % (0-3) Basophils (%) (Auto) 1 % (0-3) Neutrophils # (Auto) 4.9 x10^3/uL (1.8-7.7) Lymphocytes # (Auto) 1.0 x10^3/uL (1.0-4.8) Monocytes # (Auto) 0.9 x10^3/uL (0.0-1.1) Eosinophils # (Auto) 0.1 x10^3/uL (0.0-0.7) Basophils # (Auto) 0.0 x10^3/uL (0.0-0.2) D-Dimer (Yee) 0.32 ug/mlFEU (0.00-0.50) Sodium Level 135 mmol/L (136-145) Potassium Level 3.5 mmol/L (3.5-5.1) Chloride Level 99 mmol/L (98-107) Carbon Dioxide Level 30 mmol/L (21-32) Anion Gap 6 (6-14) Blood Urea Nitrogen 10 mg/dL (7-20) Creatinine 0.8 mg/dL (0.6-1.0) Estimated GFR (Cockcroft-Gault) 75.9 BUN/Creatinine Ratio 13 (6-20) Glucose Level 195 mg/dL (70-99) Lactic Acid Level 1.4 mmol/L (0.4-2.0) Calcium Level 8.3 mg/dL (8.5-10.1) Total Bilirubin 0.6 mg/dL (0.2-1.0) Aspartate Amino Transf (AST/SGOT) 24 U/L (15-37) Alanine Aminotransferase (ALT/SGPT) 23 U/L (14-59) Alkaline Phosphatase 106 U/L (46-116) Troponin I Quantitative < 0.017 ng/mL (0.000-0.055) NQ-Tho-Q-Type Natriuretic Peptide 31 pg/mL (0-124) Total Protein 8.1 g/dL (6.4-8.2) Albumin 3.1 g/dL (3.4-5.0) Albumin/Globulin Ratio 0.6 (1.0-1.7) Influenza Type A Antigen Negative (NEGATIVE) Influenza Type B Antigen Negative (NEGATIVE) Group A Streptococcus Rapid Positive (NEGATIVE) Urine Collection Type Unknown Urine Color Yellow Urine Clarity Cloudy Urine pH 6.0 Urine Specific [place] 1.020 Urine Protein Negative mg/dL (NEG-TRACE) Urine Glucose (UA) 100 mg/dL (NEG) Urine Ketones (Stick) Negative mg/dL (NEG) Urine Blood Trace (NEG) Urine Nitrite Negative (NEG) Urine Bilirubin Negative (NEG) Urine Urobilinogen Dipstick 2.0 mg/dL (0.2 mg/dL) Urine Leukocyte Esterase Trace (NEG) Urine RBC 1-2 /HPF (0-2) Urine WBC 5-10 /HPF (0-4) Urine Squamous Epithelial Cells Mod /LPF Urine Bacteria 0 /HPF (0-FEW) Urine Mucus Mod /LPF Glucose (Fingerstick) 239 mg/dL (70-99) Test 03/29/19 20:44 03/30/19 04:58 Glucose (Fingerstick) 128 mg/dL (70-99) White Blood Count 6.2 x10^3/uL (4.0-11.0) Red Blood Count 4.05 x10^6/uL (3.50-5.40) Hemoglobin 13.2 g/dL (12.0-15.5) Hematocrit 39.6 % (36.0-47.0) Mean Corpuscular Volume 98 fL (79-100) Mean Corpuscular Hemoglobin 33 pg (25-35) Mean Corpuscular Hemoglobin Concent 33 g/dL (31-37) Red Cell Distribution Width 13.6 % (11.5-14.5) Platelet Count 127 x10^3/uL (140-400) Neutrophils (%) (Auto) 56 % (31-73) Lymphocytes (%) (Auto) 31 % (24-48) Monocytes (%) (Auto) 11 % (0-9) Eosinophils (%) (Auto) 2 % (0-3) Basophils (%) (Auto) 1 % (0-3) Neutrophils # (Auto) 3.5 x10^3/uL (1.8-7.7) Lymphocytes # (Auto) 1.9 x10^3/uL (1.0-4.8) Monocytes # (Auto) 0.7 x10^3/uL (0.0-1.1) Eosinophils # (Auto) 0.1 x10^3/uL (0.0-0.7) Basophils # (Auto) 0.0 x10^3/uL (0.0-0.2) Sodium Level 138 mmol/L (136-145) Potassium Level 3.8 mmol/L (3.5-5.1) Chloride Level 101 mmol/L (98-107) Carbon Dioxide Level 29 mmol/L (21-32) Anion Gap 8 (6-14) Blood Urea Nitrogen 11 mg/dL (7-20) Creatinine 0.7 mg/dL (0.6-1.0) Estimated GFR (Cockcroft-Gault) 88.6 Glucose Level 156 mg/dL (70-99) Calcium Level 8.7 mg/dL (8.5-10.1) Medications Current Medications Sodium Chloride 1,000 ml @ 1,000 mls/hr Q1H IV Last administered on 03/29/19at 08:35; Start 03/29/19 at 08:35; Stop 03/29/19 at 09:34; Status DC Albuterol/ Ipratropium (Duoneb) 3 ml 1X ONCE NEB Last administered on 03/29/19at 08:57; Start 03/29/19 at 08:45; Stop 03/29/19 at 08:46; Status DC Albuterol/ Ipratropium (Duoneb) 3 ml 1X ONCE NEB Last administered on 03/29/19at 09:11; Start 03/29/19 at 09:15; Stop 03/29/19 at 09:16; Status DC Ceftriaxone Sodium (Rocephin) 1 gm 1X ONCE IVP Last administered on 03/29/19at 11:03; Start 03/29/19 at 10:45; Stop 03/29/19 at 10:46; Status DC Acetaminophen (Tylenol) 650 mg PRN Q4HRS PRN PO FEVER Last administered on 03/29/19at 21:32; Start 03/29/19 at 12:15; Stop 03/30/19 at 12:14 Albuterol/ Ipratropium (Duoneb) 3 ml RTQID NEB Last administered on 03/29/19at 20:22; Start 03/29/19 at 16:00; Stop 03/30/19 at 15:59 Insulin Human Lispro (HumaLOG) 0-5 UNITS TIDACHC SQ Last administered on 03/29/19at 17:31; Start 03/29/19 at 16:30 Dextrose (Dextrose 50%-Water Syringe) 12.5 gm PRN Q15MIN PRN IV SEE COMMENTS; Start 03/29/19 at 16:30 Ceftriaxone Sodium (Rocephin) 1 gm Q24H IVP ; Start 03/30/19 at 09:00 Benzonatate (Tessalon Perle) 100 mg TID PO Last administered on 03/29/19at 21:35; Start 03/29/19 at 21:00 Guaifenesin (Mucinex) 600 mg BID PO Last administered on 03/29/19at 21:32; Start 03/29/19 at 21:00 Ondansetron HCl (Zofran Odt) 4 mg PRN Q6HRS PRN PO nausea/vomting; Start 03/29/19 at 16:30 Metformin HCl (Glucophage) 1,000 mg BIDWMEALS PO Last administered on 03/29/19at 17:28; Start 03/29/19 at 17:00 Enoxaparin Sodium (Lovenox 40mg Syringe) 40 mg Q24H SQ Last administered on 03/29/19at 22:00; Start 03/29/19 at 22:00 Active Scripts Active Dicyclomine Hcl 10 Mg Capsule 1 Cap PO PRN Q6HRS PRN Ondansetron Odt (Ondansetron) 4 Mg Tab.rapdis 1 Tab PO PRN Q6-8HRS PRN Prednisone 50 Mg Tablet 1 Tab PO DAILY Tessalon Perle (Benzonatate) 100 Mg Capsule 1 Cap PO TID Amoxicillin 875 Mg Tablet 1 Tab PO BID Amaryl (Glimepiride) 2 Mg Tablet 2 Mg PO DAILY Glucophage (Metformin Hcl) 1,000 Mg Tablet 1,000 Mg PO BIDWMEALS Mucinex (Guaifenesin) 600 Mg Tablet.er 600 Mg PO BID 5 Days Doxycycline Hyclate 100 Mg Tablet 100 Mg PO BID 3 Days Vitals/I & O Vital Sign - Last 24 Hours 03/29/19 03/29/19 03/29/19 03/29/19 08:08 08:30 08:52 09:00 Temp 100.0 100.0 Pulse 88 94 84 Resp 20 B/P (MAP) 141/73 (95) 147/73 (97) Pulse Ox 85 96 85 94 O2 Delivery Room Air Nasal Cannula Room Air Nasal Cannula O2 Flow Rate 2.0 2.0 03/29/19 03/29/19 03/29/19 03/29/19 09:11 09:30 10:00 10:30 Pulse 82 80 76 Resp 20 B/P (MAP) 121/56 (77) 130/60 (83) Pulse Ox 92 96 96 97 O2 Delivery Nasal Cannula Nasal Cannula Nasal Cannula Nasal Cannula O2 Flow Rate 2.0 2.0 2.0 3.0 03/29/19 03/29/19 03/29/19 03/29/19 11:00 11:28 11:58 12:58 Pulse 76 76 80 74 Resp 19 B/P (MAP) 134/57 (82) 130/63 (85) 146/67 (93) 130/62 (84) Pulse Ox 97 95 95 95 O2 Delivery Nasal Cannula Nasal Cannula Nasal Cannula Nasal Cannula O2 Flow Rate 3.0 3.0 3.0 3.0 03/29/19 03/29/19 03/29/19 03/29/19 14:26 14:34 15:25 19:30 Temp 98.8 99.8 98.8 99.8 Pulse 83 73 Resp 18 18 B/P (MAP) 119/65 (83) 110/56 (74) Pulse Ox 99 94 96 O2 Delivery Nasal Cannula Room Air Nasal Cannula Nasal Cannula O2 Flow Rate 3.0 2.0 3.0 3.0 03/29/19 03/29/19 03/29/19 03/30/19 20:00 20:24 23:57 03:55 Temp 98.9 99.0 98.9 99.0 Pulse 65 70 Resp 18 18 B/P (MAP) 115/62 (79) 104/60 (75) Pulse Ox 94 92 O2 Delivery Nasal Cannula Nasal Cannula Nasal Cannula Nasal Cannula O2 Flow Rate 2.0 3.0 3.0 3.0 Intake and Output 03/29/19 03/29/19 03/30/19 15:00 23:00 07:00 Intake Total 1000 ml 550 ml 500 ml Balance 1000 ml 550 ml 500 ml ANA KATZ MD Mar 30, 2019 07:29
[2019-03-30] MEDS: IPRATRPIUM/ALBUTEROL 0.5/2.5MG 3 ML NEBU. NEB SCH ×3 (08:00→20:59)
[2019-03-30] MEDS: BENZONATATE 100 MG CAPSULE. PO SCH ×3 (08:27→21:45)
[2019-03-30] MEDS: metFORMIN 500 MG TABLET PO SCH ×2 (08:27→16:27)
[2019-03-30] MEDS: ACETAMINOPHEN 325 MG TABLET. PO PRN (08:27)
[2019-03-30] MEDS: cefTRIAXone IV Push 1 GM VIAL. IVP SCH (08:27)
[2019-03-30] MEDS: INSULIN LISPRO 300 UNITS/3 ML VIAL. SQ SCH ×4 (08:41→21:00)
--- NOTE | 2019-03-30 09:37 | CONS ---
DATE OF CONSULTATION: PULMONARY CONSULTATION ATTENDING PHYSICIAN: Aditya Barclay MD. REASON FOR CONSULTATION: Dyspnea. HISTORY OF PRESENT ILLNESS: The patient is a 49-year-old obese patient with a BMI of 30. She is from [facility]. She does not speak Maltese, but her at the bedside was able to help. The patient presented to the hospital with complaint of a cough and subjective fever and some shortness of breath. Apparently, she was wheezing as well. She was hospitalized. Her chest x-ray did not reveal any definite infiltrate. The patient was started on antibiotic along with bronchodilators. She is currently on 3 liters of oxygen, saturation of 95%. She does not appear to be in any obvious respiratory distress. I have been asked to see her for further evaluation. PAST MEDICAL HISTORY: Significant for diabetes. PAST SURGICAL HISTORY: Details of surgery are not available. FAMILY HISTORY: Diabetes. SOCIAL HISTORY: Nonsmoker. She is from [facility]. ALLERGIES: None. MEDICATIONS: Reviewed as listed in the MRAD. PHYSICAL EXAMINATION: VITAL SIGNS: Reviewed. T-max of 99.8, blood pressure stable, pulse ox 96% on 3 liters. HEENT: Sclerae nonicteric. NECK: Supple. LUNGS: With few anterior rhonchi, no wheezing. CARDIOVASCULAR: With regular rate. ABDOMEN: Soft, nontender, obese. EXTREMITIES: With no pitting edema. LABORATORY DATA: Reviewed. Influenza screen is negative. Her rapid group A strep was positive. Sodium 138, potassium 3.8, BUN 11, creatinine 0.7. White cell count 6.2, hemoglobin 13.2, and platelets are 127. IMPRESSION: 1. Dyspnea / hypoxic RF secondary to acute bronchitis and probably triggering mild bronchospasm. 2. Group A strep pharyngitis. 3. No significant tobacco history. 4. No known history of asthma. 5. Clear chest x-ray. RECOMMENDATIONS: 1. Continue present oxygen to keep saturation 92 and above and gradually wean FiO2. 2. Continue present antibiotics. 3. Continue bronchodilators. 4. Anticipate discharge in the next 24 hours. 5. Discussed with the patient's . NATA GREENBERG MD DR: SOFIA/hermann JOB#: [id number] / [id number] MTDD
--- NOTE | 2019-03-30 10:10 | EKG ---
[facility] [address] [place] [address] Test Date: 2019-03-29 Test Time: 08:54:07 Pat Name: THOMAS BROOKE Department: Room: Gender: F Waste Disposal Attendant: : 1970 Requested By: FLY CASTRO Order Number: [id number] Reading MD: Measurements Intervals [place] Rate: 90 P: 59 [place]: 150 QRS: 52 QRSD: 104 T: 43 QT: 364 QTc: 449 Interpretive Statements SINUS RHYTHM QRS(T) CONTOUR ABNORMALITY CONSIDER INFERIOR MYOCARDIAL DAMAGE POSSIBLY ABNORMAL ECG RI6.01 No previous ECG available for comparison
--- NOTE | 2019-03-30 10:24 | EKG ---
[facility] [address] [place] [address] Test Date: 2019-03-29 Test Time: 10:05:08 Pat Name: THOAMS BROOKE Department: Room: 1 1 Gender: F Blow Molding Machine Tender: : 1970 Requested By: MEGGAN EPSTEIN Order Number: [id number] Reading MD: Measurements Intervals [place] Rate: 100 P: 35 [place]: 146 QRS: 21 QRSD: 100 T: -132 QT: 352 QTc: 457 Interpretive Statements SINUS RHYTHM VENTRICULAR PREMATURE COMPLEX(ES) ATRIAL PREMATURE COMPLEX(ES) ST & T ABNORMALITY, CONSIDER LATERAL ISCHEMIA OR LEFT VENTRICULAR STRAIN INFEROLATERAL ISCHEMIA OR LEFT VENTRICULAR STRAIN ABNORMAL ECG RI6.01 No previous ECG available for comparison
[2019-03-30 10:59] VITALS: BP 113/53
[2019-03-30 15:18] VITALS: BP 111/55
[2019-03-30] MEDS ORDERED: ACETAMINOPHEN 325 MG TABLET. PO PRN (16:30)
[2019-03-30 19:35] VITALS: BP 91/42
[2019-03-30] MEDS: ENOXAPARIN 40 MG/0.4 ML SYRINGE. SQ SCH (21:45)
[2019-03-30 23:38] VITALS: BP 104/54
[2019-03-31 03:49] VITALS: BP 100/56
[2019-03-31 07:00] VITALS: BP 97/52
[2019-03-31] MEDS: IPRATRPIUM/ALBUTEROL 0.5/2.5MG 3 ML NEBU. NEB SCH ×4 (08:04→20:19)
--- NOTE | 2019-03-31 08:17 | PDOC ---
PROGRESS NOTES History of Present Illness History of Present Illness Images Images CXR - Atherosclerotic aortic arch. Stable mild cardiomegaly. Lungs are clear. There is no pneumothorax. No pleural effusion is appreciated. No acute bone abnormality. Old right posterior rib fractures. IMPRESSION: No acute cardiopulmonary process. VTE Prophylaxis Ordered VTE Prophylaxis Devices: No VTE Pharmacological Prophylaxi: Yes Assessment/Plan Strep throat - cont cephalosporin, having difficulty swallowing. Sob, acute hypoxic resp failure - likely bronchitis, will treat as such with nebs DM2, hba1c 8.2 last year - will place on sliding scale Obesity - attempted counseling on weight loss Fatty liver - previously noted, likely 2/2 DM2, will treat Scarring with decreased size right kidney FEN - ADA diet PPX - lovenox FULL CODE Dispo - inpatient for acute hypoxia pulm consult ADD BUDESONIDE 0.5 MG BID NEBS Vitals Vitals Vital Signs Date Time Temp Pulse Resp B/P (MAP) Pulse Ox O2 Delivery O2 Flow Rate FiO2 03/31/19 08:04 96 Nasal Cannula 3.0 03/31/19 03:49 98.7 79 18 100/56 (71) 98.7 Physical Exam General: Alert, Oriented X3, Cooperative, No acute distress Heart: Regular rate Lungs: Clear Abdomen: Normal bowel sounds, Soft, No tenderness, No hepatosplenomegaly, No masses Skin: No rashes, No breakdown, No significant lesion Labs LABS CT abdomen and pelvis with contrast. HISTORY: Abdominal pain CT scan of the abdomen and pelvis was done using 75 mL Omnipaque 300 contrast. Lung bases are clear. There is no pleural effusion. There are old right rib fractures. 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 There is sclerosis at the SI joints. Liver is normal in appearance. There is no calcified gallstone or gallbladder wall thickening. Spleen and adrenal glands are normal. Pancreas is normal. There is no mass or hydronephrosis in the kidneys. There is scarring and decreased size of the right kidney. There is no adenopathy. Bowel pattern is normal. Appendix is normal. Uterus and ovaries are unremarkable. There is no free fluid in the pelvis. There is diverticulosis of the colon without an acute diverticulitis. Small bowel pattern is unremarkable. There is degenerative spondylolisthesis at L4-5. There is no lumbar fracture. IMPRESSION: 1. Scarring with decreased size right kidney 2. No abdominal or pelvic mass or acute finding noted. 3. No renal or ureteral calculus evident. 4. Normal appendix. 5. SI joint sclerosis and arthritis. Electronically signed by: Azael Perez MD (10/18/2018 6:48 PM) [facility] DICTATED and SIGNED BY: AZAEL PEREZ MD DATE: 10/18/18 1848 Laboratory Tests Test 03/30/19 12:04 03/30/19 16:31 03/30/19 21:08 03/31/19 08:10 Glucose (Fingerstick) 155 mg/dL (70-99) 192 mg/dL (70-99) 200 mg/dL (70-99) 182 mg/dL (70-99) Assessment and Plan Assessmemt and Plan Problems Medical Problems: (1) Acute bronchospasm Status: Acute (2) Hypoxemia Status: Acute (3) Strep throat Status: Acute Comment Review of Relevant I have reviewed the following items refugio (where applicable) has been applied. Labs Laboratory Tests Test 03/29/19 09:05 03/29/19 09:12 03/29/19 12:25 03/29/19 16:53 White Blood Count 6.9 x10^3/uL (4.0-11.0) Red Blood Count 4.13 x10^6/uL (3.50-5.40) Hemoglobin 13.6 g/dL (12.0-15.5) Hematocrit 39.7 % (36.0-47.0) Mean Corpuscular Volume 96 fL (79-100) Mean Corpuscular Hemoglobin 33 pg (25-35) Mean Corpuscular Hemoglobin Concent 34 g/dL (31-37) Red Cell Distribution Width 13.2 % (11.5-14.5) Platelet Count 137 x10^3/uL (140-400) Neutrophils (%) (Auto) 71 % (31-73) Lymphocytes (%) (Auto) 14 % (24-48) Monocytes (%) (Auto) 13 % (0-9) Eosinophils (%) (Auto) 2 % (0-3) Basophils (%) (Auto) 1 % (0-3) Neutrophils # (Auto) 4.9 x10^3/uL (1.8-7.7) Lymphocytes # (Auto) 1.0 x10^3/uL (1.0-4.8) Monocytes # (Auto) 0.9 x10^3/uL (0.0-1.1) Eosinophils # (Auto) 0.1 x10^3/uL (0.0-0.7) Basophils # (Auto) 0.0 x10^3/uL (0.0-0.2) D-Dimer (Yee) 0.32 ug/mlFEU (0.00-0.50) Sodium Level 135 mmol/L (136-145) Potassium Level 3.5 mmol/L (3.5-5.1) Chloride Level 99 mmol/L (98-107) Carbon Dioxide Level 30 mmol/L (21-32) Anion Gap 6 (6-14) Blood Urea Nitrogen 10 mg/dL (7-20) Creatinine 0.8 mg/dL (0.6-1.0) Estimated GFR (Cockcroft-Gault) 75.9 BUN/Creatinine Ratio 13 (6-20) Glucose Level 195 mg/dL (70-99) Lactic Acid Level 1.4 mmol/L (0.4-2.0) Calcium Level 8.3 mg/dL (8.5-10.1) Total Bilirubin 0.6 mg/dL (0.2-1.0) Aspartate Amino Transf (AST/SGOT) 24 U/L (15-37) Alanine Aminotransferase (ALT/SGPT) 23 U/L (14-59) Alkaline Phosphatase 106 U/L (46-116) Troponin I Quantitative < 0.017 ng/mL (0.000-0.055) BN-Zbs-V-Type Natriuretic Peptide 31 pg/mL (0-124) Total Protein 8.1 g/dL (6.4-8.2) Albumin 3.1 g/dL (3.4-5.0) Albumin/Globulin Ratio 0.6 (1.0-1.7) Influenza Type A Antigen Negative (NEGATIVE) Influenza Type B Antigen Negative (NEGATIVE) Group A Streptococcus Rapid Positive (NEGATIVE) Urine Collection Type Unknown Urine Color Yellow Urine Clarity Cloudy Urine pH 6.0 Urine Specific [place] 1.020 Urine Protein Negative mg/dL (NEG-TRACE) Urine Glucose (UA) 100 mg/dL (NEG) Urine Ketones (Stick) Negative mg/dL (NEG) Urine Blood Trace (NEG) Urine Nitrite Negative (NEG) Urine Bilirubin Negative (NEG) Urine Urobilinogen Dipstick 2.0 mg/dL (0.2 mg/dL) Urine Leukocyte Esterase Trace (NEG) Urine RBC 1-2 /HPF (0-2) Urine WBC 5-10 /HPF (0-4) Urine Squamous Epithelial Cells Mod /LPF Urine Bacteria 0 /HPF (0-FEW) Urine Mucus Mod /LPF Glucose (Fingerstick) 239 mg/dL (70-99) Test 03/29/19 20:44 03/30/19 04:58 03/30/19 07:18 03/30/19 12:04 Glucose (Fingerstick) 128 mg/dL (70-99) 164 mg/dL (70-99) 155 mg/dL (70-99) White Blood Count 6.2 x10^3/uL (4.0-11.0) Red Blood Count 4.05 x10^6/uL (3.50-5.40) Hemoglobin 13.2 g/dL (12.0-15.5) Hematocrit 39.6 % (36.0-47.0) Mean Corpuscular Volume 98 fL (79-100) Mean Corpuscular Hemoglobin 33 pg (25-35) Mean Corpuscular Hemoglobin Concent 33 g/dL (31-37) Red Cell Distribution Width 13.6 % (11.5-14.5) Platelet Count 127 x10^3/uL (140-400) Neutrophils (%) (Auto) 56 % (31-73) Lymphocytes (%) (Auto) 31 % (24-48) Monocytes (%) (Auto) 11 % (0-9) Eosinophils (%) (Auto) 2 % (0-3) Basophils (%) (Auto) 1 % (0-3) Neutrophils # (Auto) 3.5 x10^3/uL (1.8-7.7) Lymphocytes # (Auto) 1.9 x10^3/uL (1.0-4.8) Monocytes # (Auto) 0.7 x10^3/uL (0.0-1.1) Eosinophils # (Auto) 0.1 x10^3/uL (0.0-0.7) Basophils # (Auto) 0.0 x10^3/uL (0.0-0.2) Sodium Level 138 mmol/L (136-145) Potassium Level 3.8 mmol/L (3.5-5.1) Chloride Level 101 mmol/L (98-107) Carbon Dioxide Level 29 mmol/L (21-32) Anion Gap 8 (6-14) Blood Urea Nitrogen 11 mg/dL (7-20) Creatinine 0.7 mg/dL (0.6-1.0) Estimated GFR (Cockcroft-Gault) 88.6 Glucose Level 156 mg/dL (70-99) Calcium Level 8.7 mg/dL (8.5-10.1) Test 03/30/19 16:31 03/30/19 21:08 03/31/19 08:10 Glucose (Fingerstick) 192 mg/dL (70-99) 200 mg/dL (70-99) 182 mg/dL (70-99) Laboratory Tests Test 03/30/19 12:04 03/30/19 16:31 03/30/19 21:08 03/31/19 08:10 Glucose (Fingerstick) 155 mg/dL (70-99) 192 mg/dL (70-99) 200 mg/dL (70-99) 182 mg/dL (70-99) Medications Current Medications Sodium Chloride 1,000 ml @ 1,000 mls/hr Q1H IV Last administered on 03/29/19at 08:35; Start 03/29/19 at 08:35; Stop 03/29/19 at 09:34; Status DC Albuterol/ Ipratropium (Duoneb) 3 ml 1X ONCE NEB Last administered on 03/29/19at 08:57; Start 03/29/19 at 08:45; Stop 03/29/19 at 08:46; Status DC Albuterol/ Ipratropium (Duoneb) 3 ml 1X ONCE NEB Last administered on 03/29/19at 09:11; Start 03/29/19 at 09:15; Stop 03/29/19 at 09:16; Status DC Ceftriaxone Sodium (Rocephin) 1 gm 1X ONCE IVP Last administered on 03/29/19at 11:03; Start 03/29/19 at 10:45; Stop 03/29/19 at 10:46; Status DC Acetaminophen (Tylenol) 650 mg PRN Q4HRS PRN PO FEVER Last administered on 03/30/19at 08:27; Start 03/29/19 at 12:15; Stop 03/30/19 at 12:14; Status DC Albuterol/ Ipratropium (Duoneb) 3 ml RTQID NEB Last administered on 03/30/19 13:20; Start 03/29/19 at 16:00; Stop 03/30/19 at 15:59; Status DC Insulin Human Lispro (HumaLOG) 0-5 UNITS TIDACHC SQ Last administered on 03/30/19 17:09; Start 03/29/19 at 16:30 Dextrose (Dextrose 50%-Water Syringe) 12.5 gm PRN Q15MIN PRN IV SEE COMMENTS; Start 03/29/19 at 16:30 Ceftriaxone Sodium (Rocephin) 1 gm Q24H IVP Last administered on 03/30/19 08:27; Start 03/30/19 at 09:00 Benzonatate (Tessalon Perle) 100 mg TID PO Last administered on 03/30/19 21:45; Start 03/29/19 at 21:00 Guaifenesin (Mucinex) 600 mg BID PO Last administered on 03/30/19 21:44; Start 03/29/19 at 21:00 Ondansetron HCl (Zofran Odt) 4 mg PRN Q6HRS PRN PO nausea/vomting; Start 03/29/19 at 16:30 Metformin HCl (Glucophage) 1,000 mg BIDWMEALS PO Last administered on 03/30/19 16:27; Start 03/29/19 at 17:00 Enoxaparin Sodium (Lovenox 40mg Syringe) 40 mg Q24H SQ Last administered on 03/30/19 21:45; Start 03/29/19 at 22:00 Acetaminophen (Tylenol) 650 mg PRN Q6HRS PRN PO fever, mild pain Last administered on 03/30/19 16:27; Start 03/30/19 at 16:30 Albuterol/ Ipratropium (Duoneb) 3 ml RTQID NEB Last administered on 03/31/19 08:04; Start 03/30/19 at 20:00 Active Scripts Active Dicyclomine Hcl 10 Mg Capsule 1 Cap PO PRN Q6HRS PRN Ondansetron Odt (Ondansetron) 4 Mg Tab.rapdis 1 Tab PO PRN Q6-8HRS PRN Prednisone 50 Mg Tablet 1 Tab PO DAILY Tessalon Perle (Benzonatate) 100 Mg Capsule 1 Cap PO TID Amoxicillin 875 Mg Tablet 1 Tab PO BID Amaryl (Glimepiride) 2 Mg Tablet 2 Mg PO DAILY Glucophage (Metformin Hcl) 1,000 Mg Tablet 1,000 Mg PO BIDWMEALS Mucinex (Guaifenesin) 600 Mg Tablet.er 600 Mg PO BID 5 Days Doxycycline Hyclate 100 Mg Tablet 100 Mg PO BID 3 Days Vitals/I & O Vital Sign - Last 24 Hours 03/30/19 03/30/19 03/30/19 03/30/19 10:59 13:20 15:18 16:18 Temp 99.4 99.1 99.4 99.1 Pulse 72 70 Resp 18 18 B/P (MAP) 113/53 (73) 111/55 (73) Pulse Ox 95 94 97 O2 Delivery Nasal Cannula Nasal Cannula Nasal Cannula Room Air O2 Flow Rate 3.0 3.0 3.0 03/30/19 03/30/19 03/30/19 03/30/19 19:35 20:00 20:59 23:38 Temp 100.3 98.1 100.3 98.1 Pulse 89 80 Resp 18 18 B/P (MAP) 91/42 (58) 104/54 (71) Pulse Ox 90 95 O2 Delivery Nasal Cannula Nasal Cannula Nasal Cannula Nasal Cannula O2 Flow Rate 3.0 3.0 3.0 3.0 03/31/19 03/31/19 03:49 08:04 Temp 98.7 98.7 Pulse 79 Resp 18 B/P (MAP) 100/56 (71) Pulse Ox 95 96 O2 Delivery Nasal Cannula Nasal Cannula O2 Flow Rate 3.0 3.0 Intake and Output 03/30/19 03/30/19 03/31/19 15:00 23:00 07:00 Intake Total 400 ml 630 ml 550 ml Output Total 0 ml Balance 400 ml 630 ml 550 ml ANA KATZ MD Mar 31, 2019 08:17
[2019-03-31] MEDS: BENZONATATE 100 MG CAPSULE. PO SCH ×3 (08:42→21:06)
[2019-03-31] MEDS: cefTRIAXone IV Push 1 GM VIAL. IVP SCH (08:42)
[2019-03-31] MEDS: metFORMIN 500 MG TABLET PO SCH ×2 (08:43→17:26)
[2019-03-31] MEDS: INSULIN LISPRO 300 UNITS/3 ML VIAL. SQ SCH ×4 (08:52→21:00)
--- NOTE | 2019-03-31 09:59 | EKG ---
[facility] [address] [place] [address] Test Date: 2019-03-30 Test Time: 10:29:42 Pat Name: THOMAS BROOKE Department: Room: 671 1 Gender: F Logistics Planning Manager: AKI : 1970 Requested By: MEGGAN EPSTEIN Order Number: [id number] Reading MD: Measurements Intervals [place] Rate: 75 P: 74 IN: 146 QRS: 106 QRSD: 98 T: 30 QT: 376 QTc: 422 Interpretive Statements SINUS RHYTHM RIGHTWARD AXIS QRS(T) CONTOUR ABNORMALITY CONSIDER ANTEROSEPTAL MYOCARDIAL DAMAGE POSSIBLY ABNORMAL ECG RI6.01 Compared to ECG 10/18/2018 17:47:31 Right-axis deviation now present
[2019-03-31 11:00] VITALS: BP 103/57
--- NOTE | 2019-03-31 12:01 | PDOC ---
PULMONARY PROGRESS NOTES Subjective The patient is a 49-year-old obese patient with a BMI of 30. She is from [facility]. She does not speak [place], but her at the bedside was able to help. The patient presented to the hospital with complaint of a cough and subjective fever and some shortness of breath. Apparently, she was wheezing as well. She was hospitalized. Her chest x-ray did not reveal any definite infiltrate. The patient was started on antibiotic along with bronchodilators. She is currently on 3 liters of oxygen, saturation of 95%. She does not appear to be in any obvious respiratory distress. She has been treated with systemic steroids, oxygen, bronchodilators and antibiotics. She is feeling better. Vitals Vital Signs Date Time Temp Pulse Resp B/P (MAP) Pulse Ox O2 Delivery O2 Flow Rate FiO2 03/31/19 08:04 96 Nasal Cannula 3.0 03/31/19 07:00 99.0 74 16 97/52 (67) 99.0 General: Alert, Oriented X4, No acute distress Lungs: Other (equal good breath sounds with occasional wheeze, scattered) Cardiovascular: S1, S2 Abdomen: Soft Neuro Exam: Alert, Normal Speech Extremities: No Edema Impression 1. Dyspnea / hypoxic RF secondary to acute bronchitis and probably triggering mild bronchospasm. 2. Group A strep pharyngitis. 3. No significant tobacco history. 4. No known history of asthma. 5. Clear chest x-ray. Labs Laboratory Tests Test 03/29/19 12:25 03/29/19 16:53 03/29/19 20:44 03/30/19 04:58 Urine Collection Type Unknown Urine Color Yellow Urine Clarity Cloudy Urine pH 6.0 Urine Specific [place] 1.020 Urine Protein Negative mg/dL (NEG-TRACE) Urine Glucose (UA) 100 mg/dL (NEG) Urine Ketones (Stick) Negative mg/dL (NEG) Urine Blood Trace (NEG) Urine Nitrite Negative (NEG) Urine Bilirubin Negative (NEG) Urine Urobilinogen Dipstick 2.0 mg/dL (0.2 mg/dL) Urine Leukocyte Esterase Trace (NEG) Urine RBC 1-2 /HPF (0-2) Urine WBC 5-10 /HPF (0-4) Urine Squamous Epithelial Cells Mod /LPF Urine Bacteria 0 /HPF (0-FEW) Urine Mucus Mod /LPF Glucose (Fingerstick) 239 mg/dL (70-99) 128 mg/dL (70-99) White Blood Count 6.2 x10^3/uL (4.0-11.0) Red Blood Count 4.05 x10^6/uL (3.50-5.40) Hemoglobin 13.2 g/dL (12.0-15.5) Hematocrit 39.6 % (36.0-47.0) Mean Corpuscular Volume 98 fL (79-100) Mean Corpuscular Hemoglobin 33 pg (25-35) Mean Corpuscular Hemoglobin Concent 33 g/dL (31-37) Red Cell Distribution Width 13.6 % (11.5-14.5) Platelet Count 127 x10^3/uL (140-400) Neutrophils (%) (Auto) 56 % (31-73) Lymphocytes (%) (Auto) 31 % (24-48) Monocytes (%) (Auto) 11 % (0-9) Eosinophils (%) (Auto) 2 % (0-3) Basophils (%) (Auto) 1 % (0-3) Neutrophils # (Auto) 3.5 x10^3/uL (1.8-7.7) Lymphocytes # (Auto) 1.9 x10^3/uL (1.0-4.8) Monocytes # (Auto) 0.7 x10^3/uL (0.0-1.1) Eosinophils # (Auto) 0.1 x10^3/uL (0.0-0.7) Basophils # (Auto) 0.0 x10^3/uL (0.0-0.2) Sodium Level 138 mmol/L (136-145) Potassium Level 3.8 mmol/L (3.5-5.1) Chloride Level 101 mmol/L (98-107) Carbon Dioxide Level 29 mmol/L (21-32) Anion Gap 8 (6-14) Blood Urea Nitrogen 11 mg/dL (7-20) Creatinine 0.7 mg/dL (0.6-1.0) Estimated GFR (Cockcroft-Gault) 88.6 Glucose Level 156 mg/dL (70-99) Calcium Level 8.7 mg/dL (8.5-10.1) Test 03/30/19 07:18 03/30/19 12:04 03/30/19 16:31 03/30/19 21:08 Glucose (Fingerstick) 164 mg/dL (70-99) 155 mg/dL (70-99) 192 mg/dL (70-99) 200 mg/dL (70-99) Test 03/31/19 08:10 Glucose (Fingerstick) 182 mg/dL (70-99) Laboratory Tests Test 03/30/19 12:04 03/30/19 16:31 03/30/19 21:08 03/31/19 08:10 Glucose (Fingerstick) 155 mg/dL (70-99) 192 mg/dL (70-99) 200 mg/dL (70-99) 182 mg/dL (70-99) Medications Active Scripts Medications Dose Route/Sig Max Daily Dose Days Date Category Dicyclomine Hcl 10 Mg Capsule 1 Cap PO PRN Q6HRS PRN 10/18/18 Rx Ondansetron Odt (Ondansetron) 4 Mg Tab.rapdis 1 Tab PO PRN Q6-8HRS PRN 10/18/18 Rx Prednisone 50 Mg Tablet 1 Tab PO DAILY 06/13/18 Rx Tessalon Perle (Benzonatate) 100 Mg Capsule 1 Cap PO TID 06/13/18 Rx Amoxicillin 875 Mg Tablet 1 Tab PO BID 06/13/18 Rx Amaryl (Glimepiride) 2 Mg Tablet 2 Mg PO DAILY 10/04/17 Rx Glucophage (Metformin Hcl) 1,000 Mg Tablet 1,000 Mg PO BIDWMEALS 10/04/17 Rx Mucinex (Guaifenesin) 600 Mg Tablet.er 600 Mg PO BID 5 10/04/17 Rx Doxycycline Hyclate 100 Mg Tablet 100 Mg PO BID 3 10/04/17 Rx Impression . 1. Dyspnea / hypoxic RF secondary to acute bronchitis and probably triggering mild bronchospasm, improving 2. Group A strep pharyngitis. 3. No significant tobacco history. 4. No known history of asthma. 5. Clear chest x-ray. Plan . Cont nebulized bronchodilators and antibiotics. Will taper oxygen as tolerated Taper steroids. CA MA MD Mar 31, 2019 12:01
[2019-03-31] MEDS: BUDESONIDE 0.5 MG/2 ML NEBU. NEB SCH ×2 (12:54→20:19)
[2019-03-31 15:00] VITALS: BP 93/47
[2019-03-31 16:14] LABS: BASE EXCESS COOX 3 mmol/L (-3-3); HCO3 COOX 30 mmol/L (21-28); METHEMOGLOBIN 0.1 % (0.0-1.9); OXYHEMOGLOBIN 95.9 %; PCO2 COOX 56 mmHg (35-46); PO2 COOX 95 mmHg (75-108); SAT O2 COOX 97 % (92-99)
[2019-03-31 19:35] VITALS: BP 92/61
[2019-03-31] MEDS ORDERED: LACTOBACILLUS RHAMNOSUS GG 1 CAPSULE. PO SCH (21:00)
[2019-03-31] MEDS: LACTOBACILLUS RHAMNOSUS GG 1 CAPSULE. PO SCH (21:06)
[2019-03-31] MEDS: ENOXAPARIN 40 MG/0.4 ML SYRINGE. SQ SCH (21:06)
[2019-03-31 23:20] VITALS: BP 97/48
[2019-04-01 03:36] VITALS: BP 99/48
--- NOTE | 2019-04-01 03:55 | NUR ---
CARLOS A: 0.148; QRS: 0.096; QT: 0.463; rate: 66 Normal sinus
[2019-04-01 05:26] LABS: BASO % 1 % (0-3); EOS # 0.3 x10^3/uL (0.0-0.7); EOS % 4 % (0-3); HEMATOCRIT 38.9 % (36.0-47.0); HEMOGLOBIN 13.2 g/dL (12.0-15.5); LYMPH # 3.3 x10^3/uL (1.0-4.8); LYMPH % 49 % (24-48); MEAN CORPUSCULAR HEMOGLOBIN 33 pg (25-35); MEAN CORPUSCULAR HGB CONC 34 g/dL (31-37); MEAN CORPUSCULAR VOLUME 97 fL (79-100); MONO # 0.5 x10^3/uL (0.0-1.1); MONO % 7 % (0-9); NEUT # 2.7 x10^3/uL (1.8-7.7); NEUT % 40 % (31-73); PLATELET COUNT 141 x10^3/uL (140-400); RED BLOOD COUNT 4.04 x10^6/uL (3.50-5.40); RED CELL DISTRIBUTION WIDTH 13.3 % (11.5-14.5); WHITE BLOOD COUNT 6.9 x10^3/uL (4.0-11.0)
[2019-04-01 07:00] VITALS: BP 120/56
[2019-04-01] MEDS: BUDESONIDE 0.5 MG/2 ML NEBU. NEB SCH (07:50)
[2019-04-01] MEDS: IPRATRPIUM/ALBUTEROL 0.5/2.5MG 3 ML NEBU. NEB SCH ×3 (07:50→15:41)
[2019-04-01] MEDS: LACTOBACILLUS RHAMNOSUS GG 1 CAPSULE. PO SCH (08:24)
[2019-04-01] MEDS: metFORMIN 500 MG TABLET PO SCH (08:24)
[2019-04-01] MEDS: BENZONATATE 100 MG CAPSULE. PO SCH ×2 (08:24→12:12)
[2019-04-01] MEDS: cefTRIAXone IV Push 1 GM VIAL. IVP SCH (08:27)
[2019-04-01] MEDS: INSULIN LISPRO 300 UNITS/3 ML VIAL. SQ SCH ×3 (08:29→16:30)
[2019-04-01 11:00] VITALS: BP 116/78
--- NOTE | 2019-04-01 11:26 | PDOC ---
PULMONARY PROGRESS NOTES Subjective The patient is a 49-year-old obese patient with a BMI of 30. She is from [facility]. She does not speak [place], but her at the bedside was able to help. The patient presented to the hospital with complaint of a cough and subjective fever and some shortness of breath. Apparently, she was wheezing as well. She was hospitalized. Her chest x-ray did not reveal any definite infiltrate. The patient was started on antibiotic along with bronchodilators. She is currently on 3 liters of oxygen, saturation of 95%. She does not appear to be in any obvious respiratory distress. She has been treated with systemic steroids, oxygen, bronchodilators and antibiotics. She now is on inhaled steroids and bronchodilators and off supplemental oxygen. She is feeling better. Vitals Vital Signs Date Time Temp Pulse Resp B/P (MAP) Pulse Ox O2 Delivery O2 Flow Rate FiO2 04/01/19 07:51 Nasal Cannula 1.0 04/01/19 07:00 98.4 73 18 120/56 (77) 93 98.4 General: Alert, Oriented X4, No acute distress Lungs: Other (equal good breath sounds with occasional wheeze, scattered) Cardiovascular: S1, S2 Abdomen: Soft Neuro Exam: Alert, Normal Speech Extremities: No Edema Impression 1. Dyspnea / hypoxic RF secondary to acute bronchitis and probably triggering mild bronchospasm. 2. Group A strep pharyngitis. 3. No significant tobacco history. 4. No known history of asthma. 5. Clear chest x-ray. Labs Laboratory Tests Test 03/30/19 12:04 03/30/19 16:31 03/30/19 21:08 03/31/19 08:10 Glucose (Fingerstick) 155 mg/dL (70-99) 192 mg/dL (70-99) 200 mg/dL (70-99) 182 mg/dL (70-99) Test 03/31/19 11:48 03/31/19 15:55 03/31/19 16:51 03/31/19 21:04 Glucose (Fingerstick) 164 mg/dL (70-99) 162 mg/dL (70-99) 143 mg/dL (70-99) O2 Saturation 97 % (92-99) Arterial Blood pH 7.35 (7.35-7.45) Arterial Blood pCO2 at Patient Temp 56 mmHg (35-46) Arterial Blood pO2 at Patient Temp 95 mmHg (75-108) Arterial Blood HCO3 30 mmol/L (21-28) Arterial Blood Base Excess 3 mmol/L (-3-3) Oxyhemoglobin 95.9 % Methemoglobin 0.1 % (0.0-1.9) Carbon Monoxide, Quantitative 0.9 % (0.0-1.9) FiO2 32 Test 04/01/19 04:50 04/01/19 08:05 White Blood Count 6.9 x10^3/uL (4.0-11.0) Red Blood Count 4.04 x10^6/uL (3.50-5.40) Hemoglobin 13.2 g/dL (12.0-15.5) Hematocrit 38.9 % (36.0-47.0) Mean Corpuscular Volume 97 fL (79-100) Mean Corpuscular Hemoglobin 33 pg (25-35) Mean Corpuscular Hemoglobin Concent 34 g/dL (31-37) Red Cell Distribution Width 13.3 % (11.5-14.5) Platelet Count 141 x10^3/uL (140-400) Neutrophils (%) (Auto) 40 % (31-73) Lymphocytes (%) (Auto) 49 % (24-48) Monocytes (%) (Auto) 7 % (0-9) Eosinophils (%) (Auto) 4 % (0-3) Basophils (%) (Auto) 1 % (0-3) Neutrophils # (Auto) 2.7 x10^3/uL (1.8-7.7) Lymphocytes # (Auto) 3.3 x10^3/uL (1.0-4.8) Monocytes # (Auto) 0.5 x10^3/uL (0.0-1.1) Eosinophils # (Auto) 0.3 x10^3/uL (0.0-0.7) Basophils # (Auto) 0.0 x10^3/uL (0.0-0.2) Glucose (Fingerstick) 170 mg/dL (70-99) Laboratory Tests Test 03/31/19 11:48 03/31/19 15:55 03/31/19 16:51 03/31/19 21:04 Glucose (Fingerstick) 164 mg/dL (70-99) 162 mg/dL (70-99) 143 mg/dL (70-99) O2 Saturation 97 % (92-99) Arterial Blood pH 7.35 (7.35-7.45) Arterial Blood pCO2 at Patient Temp 56 mmHg (35-46) Arterial Blood pO2 at Patient Temp 95 mmHg (75-108) Arterial Blood HCO3 30 mmol/L (21-28) Arterial Blood Base Excess 3 mmol/L (-3-3) Oxyhemoglobin 95.9 % Methemoglobin 0.1 % (0.0-1.9) Carbon Monoxide, Quantitative 0.9 % (0.0-1.9) FiO2 32 Test 04/01/19 04:50 04/01/19 08:05 White Blood Count 6.9 x10^3/uL (4.0-11.0) Red Blood Count 4.04 x10^6/uL (3.50-5.40) Hemoglobin 13.2 g/dL (12.0-15.5) Hematocrit 38.9 % (36.0-47.0) Mean Corpuscular Volume 97 fL (79-100) Mean Corpuscular Hemoglobin 33 pg (25-35) Mean Corpuscular Hemoglobin Concent 34 g/dL (31-37) Red Cell Distribution Width 13.3 % (11.5-14.5) Platelet Count 141 x10^3/uL (140-400) Neutrophils (%) (Auto) 40 % (31-73) Lymphocytes (%) (Auto) 49 % (24-48) Monocytes (%) (Auto) 7 % (0-9) Eosinophils (%) (Auto) 4 % (0-3) Basophils (%) (Auto) 1 % (0-3) Neutrophils # (Auto) 2.7 x10^3/uL (1.8-7.7) Lymphocytes # (Auto) 3.3 x10^3/uL (1.0-4.8) Monocytes # (Auto) 0.5 x10^3/uL (0.0-1.1) Eosinophils # (Auto) 0.3 x10^3/uL (0.0-0.7) Basophils # (Auto) 0.0 x10^3/uL (0.0-0.2) Glucose (Fingerstick) 170 mg/dL (70-99) Medications Active Scripts Medications Dose Route/Sig Max Daily Dose Days Date Category Dicyclomine Hcl 10 Mg Capsule 1 Cap PO PRN Q6HRS PRN 10/18/18 Rx Ondansetron Odt (Ondansetron) 4 Mg Tab.rapdis 1 Tab PO PRN Q6-8HRS PRN 10/18/18 Rx Prednisone 50 Mg Tablet 1 Tab PO DAILY 06/13/18 Rx Tessalon Perle (Benzonatate) 100 Mg Capsule 1 Cap PO TID 06/13/18 Rx Amoxicillin 875 Mg Tablet 1 Tab PO BID 06/13/18 Rx Amaryl (Glimepiride) 2 Mg Tablet 2 Mg PO DAILY 10/04/17 Rx Glucophage (Metformin Hcl) 1,000 Mg Tablet 1,000 Mg PO BIDWMEALS 10/04/17 Rx Mucinex (Guaifenesin) 600 Mg Tablet.er 600 Mg PO BID 5 10/04/17 Rx Doxycycline Hyclate 100 Mg Tablet 100 Mg PO BID 3 10/04/17 Rx Impression . 1. Dyspnea / hypoxic RF secondary to acute bronchitis and probably triggering mild bronchospasm, improving 2. Group A strep pharyngitis. 3. No significant tobacco history. 4. No known history of asthma. 5. Clear chest x-ray. Plan . Cont nebulized bronchodilators and antibiotic and inhaled steroids OK for discharge from my perspective. CA MA MD Apr 01, 2019 11:26
[2019-04-01 15:00] VITALS: BP 104/62
--- NOTE | 2019-04-01 15:45 | PDOC ---
PROGRESS NOTES History of Present Illness History of Present Illness Images Images CXR - Atherosclerotic aortic arch. Stable mild cardiomegaly. Lungs are clear. There is no pneumothorax. No pleural effusion is appreciated. No acute bone abnormality. Old right posterior rib fractures. IMPRESSION: No acute cardiopulmonary process. VTE Prophylaxis Ordered VTE Prophylaxis Devices: No VTE Pharmacological Prophylaxi: Yes DISCHARGE DX Strep throat - cont cephalosporin, NO difficulty swallowing. Sob, acute hypoxic resp failure - likely bronchitis RESOLVED, will treat as such with nebs DM2, hba1c 8.2 last year - will place on sliding scale Obesity - attempted counseling on weight loss Fatty liver - previously noted, likely 2/2 DM2, will treat Scarring with decreased size right kidney FEN - ADA diet PPX - lovenox FULL CODE Dispo - inpatient for acute hypoxia pulm consult ADD BUDESONIDE 0.5 MG BID NEBS D/C PLANNING 34 MIN Vitals Vitals Vital Signs Date Time Temp Pulse Resp B/P (MAP) Pulse Ox O2 Delivery O2 Flow Rate FiO2 04/01/19 15:42 Room Air 04/01/19 15:00 97.9 67 16 104/62 (76) 92 97.9 04/01/19 11:50 1.0 Physical Exam General: Alert, Oriented X3, Cooperative, No acute distress Heart: Regular rate Lungs: Clear, Other (equal good breath sounds with occasional wheeze, scattered) Abdomen: Normal bowel sounds, Soft, No tenderness, No hepatosplenomegaly, No masses Extremities: No cyanosis Skin: No rashes, No breakdown, No significant lesion Labs LABS Laboratory Tests Test 03/31/19 15:55 03/31/19 16:51 03/31/19 21:04 04/01/19 04:50 O2 Saturation 97 % (92-99) Arterial Blood pH 7.35 (7.35-7.45) Arterial Blood pCO2 at Patient Temp 56 mmHg (35-46) Arterial Blood pO2 at Patient Temp 95 mmHg (75-108) Arterial Blood HCO3 30 mmol/L (21-28) Arterial Blood Base Excess 3 mmol/L (-3-3) Oxyhemoglobin 95.9 % Methemoglobin 0.1 % (0.0-1.9) Carbon Monoxide, Quantitative 0.9 % (0.0-1.9) FiO2 32 Glucose (Fingerstick) 162 mg/dL (70-99) 143 mg/dL (70-99) White Blood Count 6.9 x10^3/uL (4.0-11.0) Red Blood Count 4.04 x10^6/uL (3.50-5.40) Hemoglobin 13.2 g/dL (12.0-15.5) Hematocrit 38.9 % (36.0-47.0) Mean Corpuscular Volume 97 fL (79-100) Mean Corpuscular Hemoglobin 33 pg (25-35) Mean Corpuscular Hemoglobin Concent 34 g/dL (31-37) Red Cell Distribution Width 13.3 % (11.5-14.5) Platelet Count 141 x10^3/uL (140-400) Neutrophils (%) (Auto) 40 % (31-73) Lymphocytes (%) (Auto) 49 % (24-48) Monocytes (%) (Auto) 7 % (0-9) Eosinophils (%) (Auto) 4 % (0-3) Basophils (%) (Auto) 1 % (0-3) Neutrophils # (Auto) 2.7 x10^3/uL (1.8-7.7) Lymphocytes # (Auto) 3.3 x10^3/uL (1.0-4.8) Monocytes # (Auto) 0.5 x10^3/uL (0.0-1.1) Eosinophils # (Auto) 0.3 x10^3/uL (0.0-0.7) Basophils # (Auto) 0.0 x10^3/uL (0.0-0.2) Test 04/01/19 08:05 04/01/19 11:08 Glucose (Fingerstick) 170 mg/dL (70-99) 167 mg/dL (70-99) Assessment and Plan Assessmemt and Plan Problems Medical Problems: (1) Acute bronchospasm Status: Acute (2) Hypoxemia Status: Acute (3) Strep throat Status: Acute Comment Review of Relevant I have reviewed the following items refugio (where applicable) has been applied. Labs Laboratory Tests Test 03/30/19 16:31 03/30/19 21:08 03/31/19 08:10 03/31/19 11:48 Glucose (Fingerstick) 192 mg/dL (70-99) 200 mg/dL (70-99) 182 mg/dL (70-99) 164 mg/dL (70-99) Test 03/31/19 15:55 03/31/19 16:51 03/31/19 21:04 04/01/19 04:50 O2 Saturation 97 % (92-99) Arterial Blood pH 7.35 (7.35-7.45) Arterial Blood pCO2 at Patient Temp 56 mmHg (35-46) Arterial Blood pO2 at Patient Temp 95 mmHg (75-108) Arterial Blood HCO3 30 mmol/L (21-28) Arterial Blood Base Excess 3 mmol/L (-3-3) Oxyhemoglobin 95.9 % Methemoglobin 0.1 % (0.0-1.9) Carbon Monoxide, Quantitative 0.9 % (0.0-1.9) FiO2 32 Glucose (Fingerstick) 162 mg/dL (70-99) 143 mg/dL (70-99) White Blood Count 6.9 x10^3/uL (4.0-11.0) Red Blood Count 4.04 x10^6/uL (3.50-5.40) Hemoglobin 13.2 g/dL (12.0-15.5) Hematocrit 38.9 % (36.0-47.0) Mean Corpuscular Volume 97 fL (79-100) Mean Corpuscular Hemoglobin 33 pg (25-35) Mean Corpuscular Hemoglobin Concent 34 g/dL (31-37) Red Cell Distribution Width 13.3 % (11.5-14.5) Platelet Count 141 x10^3/uL (140-400) Neutrophils (%) (Auto) 40 % (31-73) Lymphocytes (%) (Auto) 49 % (24-48) Monocytes (%) (Auto) 7 % (0-9) Eosinophils (%) (Auto) 4 % (0-3) Basophils (%) (Auto) 1 % (0-3) Neutrophils # (Auto) 2.7 x10^3/uL (1.8-7.7) Lymphocytes # (Auto) 3.3 x10^3/uL (1.0-4.8) Monocytes # (Auto) 0.5 x10^3/uL (0.0-1.1) Eosinophils # (Auto) 0.3 x10^3/uL (0.0-0.7) Basophils # (Auto) 0.0 x10^3/uL (0.0-0.2) Test 04/01/19 08:05 04/01/19 11:08 Glucose (Fingerstick) 170 mg/dL (70-99) 167 mg/dL (70-99) Laboratory Tests Test 03/31/19 15:55 03/31/19 16:51 03/31/19 21:04 04/01/19 04:50 O2 Saturation 97 % (92-99) Arterial Blood pH 7.35 (7.35-7.45) Arterial Blood pCO2 at Patient Temp 56 mmHg (35-46) Arterial Blood pO2 at Patient Temp 95 mmHg (75-108) Arterial Blood HCO3 30 mmol/L (21-28) Arterial Blood Base Excess 3 mmol/L (-3-3) Oxyhemoglobin 95.9 % Methemoglobin 0.1 % (0.0-1.9) Carbon Monoxide, Quantitative 0.9 % (0.0-1.9) FiO2 32 Glucose (Fingerstick) 162 mg/dL (70-99) 143 mg/dL (70-99) White Blood Count 6.9 x10^3/uL (4.0-11.0) Red Blood Count 4.04 x10^6/uL (3.50-5.40) Hemoglobin 13.2 g/dL (12.0-15.5) Hematocrit 38.9 % (36.0-47.0) Mean Corpuscular Volume 97 fL (79-100) Mean Corpuscular Hemoglobin 33 pg (25-35) Mean Corpuscular Hemoglobin Concent 34 g/dL (31-37) Red Cell Distribution Width 13.3 % (11.5-14.5) Platelet Count 141 x10^3/uL (140-400) Neutrophils (%) (Auto) 40 % (31-73) Lymphocytes (%) (Auto) 49 % (24-48) Monocytes (%) (Auto) 7 % (0-9) Eosinophils (%) (Auto) 4 % (0-3) Basophils (%) (Auto) 1 % (0-3) Neutrophils # (Auto) 2.7 x10^3/uL (1.8-7.7) Lymphocytes # (Auto) 3.3 x10^3/uL (1.0-4.8) Monocytes # (Auto) 0.5 x10^3/uL (0.0-1.1) Eosinophils # (Auto) 0.3 x10^3/uL (0.0-0.7) Basophils # (Auto) 0.0 x10^3/uL (0.0-0.2) Test 04/01/19 08:05 04/01/19 11:08 Glucose (Fingerstick) 170 mg/dL (70-99) 167 mg/dL (70-99) Microbiology 03/29/19 Urine Culture - Final, Complete 03/29/19 Urine Culture Result 1 (ANTONY) - Final, Complete Medications Current Medications Sodium Chloride 1,000 ml @ 1,000 mls/hr Q1H IV Last administered on 03/29/19at 08:35; Start 03/29/19 at 08:35; Stop 03/29/19 at 09:34; Status DC Albuterol/ Ipratropium (Duoneb) 3 ml 1X ONCE NEB Last administered on 03/29/19at 08:57; Start 03/29/19 at 08:45; Stop 03/29/19 at 08:46; Status DC Albuterol/ Ipratropium (Duoneb) 3 ml 1X ONCE NEB Last administered on 03/03 12/18at 09:11; Start 03/29/19 at 09:15; Stop 03/29/19 at 09:16; Status DC Ceftriaxone Sodium (Rocephin) 1 gm 1X ONCE IVP Last administered on 03/29/19at 11:03; Start 03/29/19 at 10:45; Stop 03/29/19 at 10:46; Status DC Acetaminophen (Tylenol) 650 mg PRN Q4HRS PRN PO FEVER Last administered on 03/30/19at 08:27; Start 03/29/19 at 12:15; Stop 03/30/19 at 12:14; Status DC Albuterol/ Ipratropium (Duoneb) 3 ml RTQID NEB Last administered on 03/30/19at 13:20; Start 03/29/19 at 16:00; Stop 03/30/19 at 15:59; Status DC Insulin Human Lispro (HumaLOG) 0-5 UNITS TIDACHC SQ Last administered on 04/01/19 12:16; Start 03/29/19 at 16:30 Dextrose (Dextrose 50%-Water Syringe) 12.5 gm PRN Q15MIN PRN IV SEE COMMENTS; Start 03/29/19 at 16:30 Ceftriaxone Sodium (Rocephin) 1 gm Q24H IVP Last administered on 04/01/19 08:27; Start 03/30/19 at 09:00 Benzonatate (Tessalon Perle) 100 mg TID PO Last administered on 04/01/19at 12:12; Start 03/29/19 at 21:00 Guaifenesin (Mucinex) 600 mg BID PO Last administered on 04/01/19 08:24; Start 03/29/19 at 21:00 Ondansetron HCl (Zofran Odt) 4 mg PRN Q6HRS PRN PO nausea/vomting; Start 03/29/19 at 16:30 Metformin HCl (Glucophage) 1,000 mg BIDWMEALS PO Last administered on 04/01/19 08:24; Start 03/29/19 at 17:00 Enoxaparin Sodium (Lovenox 40mg Syringe) 40 mg Q24H SQ Last administered on 03/31/19at 21:06; Start 03/29/19 at 22:00 Acetaminophen (Tylenol) 650 mg PRN Q6HRS PRN PO fever, mild pain Last administered on 03/30/19at 16:27; Start 03/30/19 at 16:30 Albuterol/ Ipratropium (Duoneb) 3 ml RTQID NEB Last administered on 04/01/19 15:41; Start 03/30/19 at 20:00 Budesonide (Pulmicort) 0.5 mg RTBID NEB Last administered on 04/01/19 07:50; Start 03/31/19 at 12:00 Lactobacillus Rhamnosus (Culturelle) 1 cap BID PO Last administered on 04/01/19 08:24; Start 03/31/19 at 21:00 Lactobacillus Rhamnosus (Culturelle) 1 cap BID PO ; Start 03/31/19 at 21:00; Stop 03/31/19 at 15:20; Status DC Active Scripts Active Dicyclomine Hcl 10 Mg Capsule 1 Cap PO PRN Q6HRS PRN Ondansetron Odt (Ondansetron) 4 Mg Tab.rapdis 1 Tab PO PRN Q6-8HRS PRN Prednisone 50 Mg Tablet 1 Tab PO DAILY Tessalon Perle (Benzonatate) 100 Mg Capsule 1 Cap PO TID Amoxicillin 875 Mg Tablet 1 Tab PO BID Amaryl (Glimepiride) 2 Mg Tablet 2 Mg PO DAILY Glucophage (Metformin Hcl) 1,000 Mg Tablet 1,000 Mg PO BIDWMEALS Mucinex (Guaifenesin) 600 Mg Tablet.er 600 Mg PO BID 5 Days Doxycycline Hyclate 100 Mg Tablet 100 Mg PO BID 3 Days Vitals/I & O Vital Sign - Last 24 Hours 03/31/19 03/31/19 03/31/19 03/31/19 15:57 16:24 19:35 20:00 Temp 98.2 98.2 Pulse 75 Resp 18 B/P (MAP) 92/61 (71) Pulse Ox 97 95 93 O2 Delivery Nasal Cannula Nasal Cannula Nasal Cannula O2 Flow Rate 3.0 1.0 3.0 3.0 03/31/19 03/31/19 03/31/19 04/01/19 20:20 20:21 23:20 03:36 Temp 98.6 98.3 98.6 98.3 Pulse 75 67 Resp 18 18 B/P (MAP) 97/48 (64) 99/48 (65) Pulse Ox 94 93 O2 Delivery Room Air Nasal Cannula Nasal Cannula Nasal Cannula O2 Flow Rate 1.0 3.0 3.0 04/01/19 04/01/19 04/01/19 04/01/19 07:00 07:51 08:00 11:00 Temp 98.4 98.1 98.4 98.1 Pulse 73 79 Resp 18 16 B/P (MAP) 120/56 (77) 116/78 (91) Pulse Ox 93 94 O2 Delivery Nasal Cannula Nasal Cannula Room Air Nasal Cannula O2 Flow Rate 1.0 04/01/19 04/01/19 04/01/19 11:50 15:00 15:42 Temp 97.9 97.9 Pulse 67 Resp 16 B/P (MAP) 104/62 (76) Pulse Ox 90 92 O2 Delivery Room Air Room Air Room Air O2 Flow Rate 1.0 Intake and Output 03/31/19 03/31/19 04/01/19 15:00 23:00 07:00 Intake Total 250 ml 120 ml Balance 250 ml 120 ml ANA KATZ MD Apr 01, 2019 15:45
[2019-04-01] MEDS ORDERED: ACET325T9 PO (15:50)
[2019-04-01] MEDS ORDERED: LACT1CAP19 PO (15:50)
[2019-04-01] MEDS ORDERED: CEPH-264 PO (15:50)
--- NOTE | 2019-04-01 15:51 | DISCH ---
DISCHARGE INSTRUCTIONS Condition on Discharge Condition on Discharge: Stable Activity After Discharge Activity Instructions for Disc: Activity as tolerated Driving Instructions after Dis: Do not drive today Weight Bearing Status after Di: As tolerated Diet after Discharge Diet after Discharge: Diabetic No Calorie Level Diet Texture: Regular Liquid Texture: Thin Liquid Swallowing Supervision: None needed Wound Incision Care Wound/Incision Care: No wound care needed Checks after Discharge Checks after discharge: Check blood press - daily Contacting the DR. after DC Call your doctor for: If your condition worsens ANA KATZ MD Apr 01, 2019 15:51
--- NOTE | 2019-04-01 16:35 | NUR ---
Discharge Note: [facility] Discharge instructions and discharge home medications reviewed with Patient and a copy given. All questions have been answered and understanding verbalized. The following instructions and handouts were given: Discharge Instructions, Education Materials Discontinued lines and drains: PIV removed, Catheter intact. Patient discharged to Home with Self-Care via Private Vehicle
== END 2019-04-01 16:40 | disposition home or self-care (01) | DRG 189 ==
LOC: ER 08:08 → 6 SOUTH 11:59
PROVIDERS: ADMIT Internal Medicine; ATTEND Internal Medicine
DX: J96.01 Acute respiratory failure with hypoxia (principal); J45.901 Unspecified asthma with (acute) exacerbation; E87.2 Acidosis; E11.9 Type 2 diabetes mellitus without complications; E66.01 Morbid (severe) obesity due to excess calories; E86.0 Dehydration; J02.0 Streptococcal pharyngitis; J20.9 Acute bronchitis, unspecified; K76.0 Fatty (change of) liver, not elsewhere classified; M19.90 Unspecified osteoarthritis, unspecified site; Z68.30 Body mass index [BMI] 30.0-30.9, adult; Z83.3 Family history of diabetes mellitus
CPT/HCPCS: 36415; 36600; 71045; 80048; 80053; 81001; 82805; 82962; 83605; 83880; 84484; 85025; 85379; 87086; 87804; 87880; 93005; 94640; 94760; 96361; 96374; J0696; J1650; J1815; J7030; J7620; J7626; 99285-25; G0378

== ENCOUNTER 2020-06-06 12:08 | Emergency (ER) | payer SELFPAY ==
[~2020-06-06] VITALS: Ht 154.9 cm; Wt 66.5 kg
[~2020-06-06 12:08] MED LIST changes: +ACET325T9 PO; +CEPH-264 PO; +LACT1CAP19 PO
[2020-06-06 12:12] VITALS: BP 144/89
[2020-06-06] MEDS ORDERED: [UNRECOGNIZED DRUG - CODE] TP (12:39)
[2020-06-06] MEDS ORDERED: IBUP-1007 PO (12:39)
--- NOTE | 2020-06-06 12:39 | PHYS DOC ---
Past Medical History Past Medical History: No Pertinent History Additional Past Medical Histor: UNKNOWN HEART CONDITION (CHANEL VANG APRN) Past Surgical History: Other Additional Past Surgical Histo: BACK (CHANEL VANG APRN) Smoking Status: Never Smoker Alcohol Use: None Drug Use: None (CHANEL VANG APRN) General Adult EDM: Chief Complaint: BLISTER/COLD SORE HPI: HPI: Patient is a 50 year old female who presents with works at [employer] and yesterday spelt hot water on herself. Patient has burn to the anterior right thigh, lateral right calf, left medial calf and left medial ankle blister that is intact. Patient also has a left elbow burn that is healing and was from approximately 3 days ago on the oven at work. Patient is due for a tetanus vaccine. Patient has not taken any medication for pain. 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 (CHANEL VANG APRN) Review of Systems: Review of Systems: Constitutional: Denies fever or chills. [] Eyes: Denies change in visual acuity. [] HENT: Denies nasal congestion or sore throat. [] Respiratory: Denies cough or shortness of breath. [] Cardiovascular: Denies chest pain or edema. [] GI: Denies abdominal pain, nausea, vomiting, bloody stools or diarrhea. [] : Denies dysuria. [] Musculoskeletal: Denies back pain or joint pain. + Right leg pain+left leg pain, + left elbow [] Integument: Denies rash. + Burn with blistering [] Neurologic: Denies headache, focal weakness or sensory changes. [] Endocrine: Denies polyuria or polydipsia. [] Lymphatic: Denies swollen glands. [] Psychiatric: Denies depression or anxiety. [] (CHANEL VANG APRN) Heart Score: Risk Factors: Risk Factors: DM, Current or recent (<one month) smoker, HTN, HLP, family history of CAD, obesity. Risk Scores: Score 0 - 3: 2.5% MACE over next 6 weeks - Discharge Home Score 4 - 6: 20.3% MACE over next 6 weeks - Admit for Clinical Observation Score 7 - 10: 72.7% MACE over next 6 weeks - Early Invasive Strategies (CHANEL VANG APRN) Allergies: Allergies: Allergies Coded Allergies Type Severity Reaction Last Updated Verified No Known Drug Allergies 06/06/20 No (CHANEL VANG APRN) Physical Exam: PE: Constitutional: Well developed, well nourished, no acute distress, non-toxic a ppearance. [] HENT: Normocephalic, atraumatic, bilateral external ears normal, oropharynx moist, no oral exudates, nose normal. [] Eyes: PERRLA, EOMI, conjunctiva normal, no discharge. [] Neck: Normal range of motion, no tenderness, supple, no stridor. [] Cardiovascular:Heart rate regular rhythm, no murmur [] Lungs & Thorax: Bilateral breath sounds clear to auscultation [] Abdomen: Bowel sounds normal, soft, no tenderness, no masses, no pulsatile masses. [] Skin: Warm, dry, no erythema, no rash. Right anterior ankle second degree burn, right anterior thigh first-degree, left medial calf second-degree with blister, left lateral ankle quarter sized blister [] Back: No tenderness, no CVA tenderness. [] Extremities: Right anterior thigh, lateral right calf, left medial calf, left ankle lateral tenderness, no cyanosis, no clubbing, ROM intact, no edema. [] Neurologic: Alert and oriented X 3, normal motor function, normal sensory function, no focal deficits noted. [] Psychologic: Affect normal, judgement normal, mood normal. [] (CHANEL VANG APRN) EKG: EKG: [] (CHANEL VANG APRN) Radiology/Procedures: Radiology/Procedures: [] (CHANEL VANG APRN) Course & Med Decision Making: Course & Med Decision Making Pertinent Labs and Imaging studies reviewed. (See chart for details) See HPI. Patient has right thigh first-degree burn is approximately 3 palms and lateral calf blistered area that is about a half a palm. Her left medial calf has 1 palm sized burn with 2 or 3 small blisters to the area. Patient also has 2 or 3 blisters to the right upper thigh also that are small and intact. Patient has a quarter sized intact blister to the left ankle medially. Alert and oriented x4. Ambulatory with steady gait. No focal weaknesses. Denies any numbness or tingling. Speaks in full clear sentences. Tender to touch in the affected areas. Patient has full range of motion of all of her extremities and joints. Pedal and radial pulses are strong and present. Patient will be sent home with bacitracin ointment and also use aloe. She can take ibuprofen for pain. [] (CHANEL VANG APRN) Dragon Disclaimer: Dragon Disclaimer: This electronic medical record was generated, in whole or in part, using a voice recognition dictation system. (CHANEL VANG APRN) Departure Departure Impression: Primary Impression: Burn Additional Impression: Language barrier affecting health care Disposition: 01 DC HOME SELF CARE/HOMELESS Condition: STABLE Referrals: NO PCP (PCP) Patient Instructions: Burn Care Additional Instructions: Follow-up with a primary care provider. Watch for signs of infection. Try to leave blisters intact. Use ointments and keep area with blisters covered to keep them clean. Also try using aloe to help with pain. Take ibuprofen for your pain. Scripts Ibuprofen (IBUPROFEN) 600 Mg Tablet 600 MG PO PRN Q6HRS PRN for INFLAMMATION, #26 TAB Prov: CHANEL VANG APRN 06/06/20 Bacitracin/Pramoxine/Aloe Vera (BACITRAYCIN PLUS OINTMENT) 28 Gm Oint...g. 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 I was available for consultation as needed during the patient's visit in the emergency department. I agree with the clinical impression, plan, and disposition. (ETHAN GLASS DO) CHANEL VANG APRN Jun 06, 2020 12:39 ETHAN GLASS DO Jun 06, 2020 14:22
[2020-06-06] MEDS ORDERED: DIPH,PERTUSS(ACELL),TET VAC/PF 0.5 ML SYRINGE. VAX IM ONE (12:45)
== END 2020-06-06 12:55 | disposition home or self-care (01) ==
LOC: ER 12:08
DX: T24.232A Burn of second degree of left lower leg, initial encounter (principal); T25.211A Burn of second degree of right ankle, initial encounter; T24.111A Burn of first degree of right thigh, initial encounter; X12.XXXA Contact with other hot fluids, initial encounter; Y93.G3 Activity, cooking and baking; Y92.89 Other specified places as the place of occurrence of the external cause; Y99.0 Civilian activity done for income or pay
CPT/HCPCS: 90471; 90715; 99283